=== PATIENT | male | born 1955 | race Caucasian/White ===

== ENCOUNTER 2016-08-23 10:43 | Emergency (ER) | payer OTHER ==
[~2016-08-23] VITALS: Ht 185.4 cm; Wt 86.0 kg
[2016-08-23 10:46] VITALS: TEMP 36.9; Ht 185.4 cm; Wt 86.0 kg
[2016-08-23] MEDS ORDERED: TIMO0.2530 OPR (11:11)
[2016-08-23] MEDS ORDERED: LMGOPS OPR (11:11)
[2016-08-23] MEDS ORDERED: CALC-51 PO (11:11)
[2016-08-23] MEDS ORDERED: MULT-506 PO (11:11)
[2016-08-23 11:13] VITALS: O2SAT 99
[2016-08-23] MEDS ORDERED: LISINOPRIL 5 MG TAB PO ONE (12:00)
--- NOTE | 2016-08-23 12:04 | EMERGENCY ROOM VISIT NOTE ---
History Report prepared by Nellibjenifer: Betzy Quintanilla Under the Supervision of: Dr. Mela Beyer M.D. First contact with patient: 11:42 Chief Complaint: CARDIAC ASSESSMENT Stated Complaint: CHEST PRESSURE, HIGH BP Nursing Triage Summary: pt states last month not feeling right bp was high this am. feels tight in chest for approx 1 month. denies any n/v. has gas able to belch any time. has irregular hb with pvcs. denies nay sob History of Present Illness The patient is a 61 year old male who presents to the Emergency Room with complaints of hypertension this morning. The patient states that his blood pressure is typically in the 130s/80s although he does have occasional fluctuations in his blood pressure. He is not treated for hypertension. This morning, his blood pressure was significantly elevated. He notes that he has had some chest tightness over the past month. It does not worsen with exertion. Currently, the patient also complains of belching. He notes that his belching seems to happen when is chest tightness is worse and his blood pressure is elevated. The patient called a nurse line today and was referred to the ER for his symptoms. He had a stress test about a year ago which revealed PVCs. Denies vomiting or other complaints. He did not take any aspirin this morning. Source of History: patient Onset: this morning Position: other (global) Quality: other (hypertension) Associated Symptoms: No vomiting Note: Other symptoms: chest tightness, belching Review of Systems See HPI for pertinent positives & negatives. A total of 10 systems reviewed and were otherwise negative. Past Medical & Surgical Medical Problems: (1) Osteoarthritis (2) Sciatica Family History No pertinent family history stated. Social History Smoking Status: Never Smoker Marital Status: Housing Status: lives with significant other Occupation Status: retired Current/Historical Medications Scheduled Calcium Carbonate-Vitamin D (Calcium), 1 TAB PO DAILY Lisinopril (Prinivil), 10 MG PO DAILY Multivitamin (Multivitamin), 1 TAB PO DAILY Timolol Maleate (Ophth) (Timolol Maleate Ophthalmi), 1 DROP OPR DAILY Miscellaneous Medications Bimatoprost (Lumigan), 1 DROP OPR Allergies Coded Allergies: No Known Allergies (Unverified , 08/23/16) Physical Exam Vital Signs Date Time Temp Pulse Resp B/P Pulse Ox O2 Delivery O2 Flow Rate FiO2 08/23/16 13:32 52 18 158/104 98 Room Air 08/23/16 13:09 48 08/23/16 12:52 49 18 173/110 100 Room Air 08/23/16 12:08 54 20 182/114 99 Room Air 08/23/16 11:13 99 Room Air 08/23/16 11:01 54 08/23/16 10:46 36.9 58 18 201/115 99 Room Air Physical Exam Vital signs reviewed. General: Well-appearing 61 year old male, in no significant distress. HEENT: No scleral icterus, PERRLA, neck supple. Atraumatic. Cardiovascular: Regular rate and rhythm, no extra sounds. Pulmonary: Clear to auscultation bilaterally, normal work of breathing. Abdomen: Soft, nontender, nondistended, positive bowel sounds. Musculoskeletal: Atraumatic, no peripheral edema. Neurologic: Patient awake alert and oriented x 3, full strength in all 4 extremities. Cranial nerves 2 through 12 grossly intact. Skin: Warm, dry, no rash Medical Decision & Procedures ER Provider Diagnostic Interpretation: Radiology results as stated below per my review and radiologist interpretation: SINGLE VIEW CHEST CLINICAL HISTORY: Atypical chest pain. Hypertension. FINDINGS: An AP, portable, upright chest radiograph is obtained. No prior studies are available for comparison at the time of dictation. The examination is degraded by portable technique and patient rotation. The heart is mildly enlarged. The pulmonary vasculature is noncongested. There is minimal bibasilar atelectasis. The lungs and pleural spaces are otherwise clear. No pneumothorax is seen. The bony thorax is grossly intact. IMPRESSION: Cardiac enlargement with no acute cardiopulmonary abnormality. Electronically signed by: Cedrick Calvo M.D. 08/23/2016 12:52 PM Dictated Date/Time: 08/23/2016 12:51 PM Laboratory Results 08/23/16 11:05 Red Blood Count 4.13, Mean Corpuscular Volume 92.0, Mean Corpuscular Hemoglobin 32.7, Mean Corpuscular Hemoglobin Concent 35.5, Mean Platelet Volume 11.0, Neutrophils (%) (Auto) 65.5, Lymphocytes (%) (Auto) 22.9, Monocytes (%) (Auto) 9.8, Eosinophils (%) (Auto) 1.0, Basophils (%) (Auto) 0.6, Neutrophils # (Auto) 3.35, Lymphocytes # (Auto) 1.17, Monocytes # (Auto) 0.50, Eosinophils # (Auto) 0.05, Basophils # (Auto) 0.03 08/23/16 11:05 Test 08/23/16 11:00 08/23/16 11:05 08/23/16 11:12 Urine Color YELLOW Urine Appearance CLEAR (CLEAR) Urine pH 6.5 (4.5-7.5) Urine Specific [place] 1.001 (1.000-1.030) Urine Protein NEG (NEG) Urine Glucose (UA) NEG (NEG) Urine Ketones NEG (NEG) Urine Occult Blood NEG (NEG) Urine Nitrite NEG (NEG) Urine Bilirubin NEG (NEG) Urine Urobilinogen NEG (NEG) Urine Leukocyte Esterase NEG (NEG) White Blood Count 5.11 K/uL (4.8-10.8) Red Blood Count 4.13 M/uL (4.7-6.1) Hemoglobin 13.5 g/dL (14.0-18.0) Hematocrit 38.0 % (42-52) Mean Corpuscular Volume 92.0 fL (80-100) Mean Corpuscular Hemoglobin 32.7 pg (25-34) Mean Corpuscular Hemoglobin Concent 35.5 g/dl (32-36) Platelet Count 251 K/uL (130-400) Mean Platelet Volume 11.0 fL (7.4-10.4) Neutrophils (%) (Auto) 65.5 % Lymphocytes (%) (Auto) 22.9 % Monocytes (%) (Auto) 9.8 % Eosinophils (%) (Auto) 1.0 % Basophils (%) (Auto) 0.6 % Neutrophils # (Auto) 3.35 K/uL (1.4-6.5) Lymphocytes # (Auto) 1.17 K/uL (1.2-3.4) Monocytes # (Auto) 0.50 K/uL (0.11-0.59) Eosinophils # (Auto) 0.05 K/uL (0-0.5) Basophils # (Auto) 0.03 K/uL (0-0.2) RDW Standard Deviation 41.7 fL (36.4-46.3) RDW Coefficient of Variation 12.4 % (11.5-14.5) Immature Granulocyte % (Auto) 0.2 % Immature Granulocyte # (Auto) 0.01 K/uL (0.00-0.02) D-Dimer 190 ug/L FEU (0-500) Anion Gap 6.0 mmol/L (3-11) Est Creatinine Clear Calc Drug Dose 77.7 ml/min Estimated GFR () 82.4 Estimated GFR (Non- 71.1 BUN/Creatinine Ratio 11.1 (10-20) Calcium Level 9.0 mg/dl (8.5-10.1) Magnesium Level 2.0 mg/dl (1.8-2.4) Total Bilirubin 0.8 mg/dl (0.2-1) Direct Bilirubin 0.2 mg/dl (0-0.2) Aspartate Amino Transf (AST/SGOT) 18 U/L (15-37) Alanine Aminotransferase (ALT/SGPT) 13 U/L (12-78) Alkaline Phosphatase 89 U/L (45-117) Total Creatine Kinase 108 U/L (39-308) Creatine Kinase MB 1.6 ng/ml (0.5-3.6) Creatine Kinase MB Ratio 1.5 (0-3.0) Troponin I < 0.015 ng/ml (0-0.045) Total Protein 7.3 gm/dl (6.4-8.2) Albumin 4.0 gm/dl (3.4-5.0) Lipase 163 U/L (73-393) Bedside Troponin I 0.000 ng/ml (0-0.045) Laboratory results per my review. Medications Administered Medications (Trade) Dose Ordered Sig/Harsh Route Start Time Stop Time Status Last Admin Dose Admin Lisinopril (Zestril Tab) 10 mg NOW ONCE PO 08/23/16 12:00 08/23/16 12:01 DC 08/23/16 12:08 10 MG Aspirin (Aspirin Chew) 324 mg NOW STAT PO 08/23/16 12:10 08/23/16 12:13 DC 08/23/16 12:19 324 MG ECG Indication: other (chest tightness/HTN) Rate (beats per minute): 53 Rhythm: sinus bradycardia Findings: RBBB, no acute ischemic change, no ectopy ED Course 1154: The patient was evaluated in room C6. A complete history and physical examination was performed. 1200: Ordered Lisinopril 10 mg PO. 1210: Ordered Aspirin 324 mg PO. 1350: Upon reevaluation, the patient was resting comfortably. I discussed findings with him. He verbalized agreement of the treatment plan. The patient was discharged home. Medical Decision Differential diagnosis: Acute coronary syndrome, pulmonary embolus, aortic dissection, musculoskeletal pain, pneumonia, pleural effusion, pneumothorax, hypertensive urgency. This patient was evaluated and appeared to be in no significant distress. Physical examination is fairly unrevealing with the exception of notable hypertension. It seems that the patient has had fluctuating blood pressures recently. He does check his blood pressure frequently at home. He has had elevated pressures recently per his review. Patient was given 10 mg of oral lisinopril. His laboratory work is fairly unrevealing. EKG reveals no evidence of acute ischemia on chest x-ray is negative. Patient does not seem to be particularly symptomatic from the hypertension. He is scheduled to see Dr. Johnson as a new primary care provider in January. Case management contacted the office and they will see him in several days for blood pressure recheck and further management. The patient was given a prescription for lisinopril 10 mg daily for the next 2 weeks. He will return to the ER for worsening of symptoms or any medical concerns. Impression Primary Impression: Hypertension Scribe Attestation The scribe's documentation has been prepared under my direction and personally reviewed by me in its entirety. I confirm that the note above accurately reflects all work, treatment, procedures, and medical decision making performed by me. Departure Information Dispostion Home / Self-Care Prescriptions Lisinopril (Prinivil) 10 Mg Tab 10 MG PO DAILY, #14 TAB Prov: Mela Beyer M.D. 08/23/16 Referrals Yadiel Johnson D.O.Int.Med. (PCP) Patient Instructions My [facility] Additional Instructions Diagnosis: Hypertension Lisinopril 10 mg daily. Follow-up with Dr. Johnson as scheduled by case management for blood pressure recheck within the next 1-2 weeks. Maintain a low-sodium diet, less than 2 g daily. Return to the emergency department for worsening of symptoms or any medical concerns. Problem Qualifiers Primary Impression: Hypertension Hypertension type: essential hypertension Qualified Codes: I10 - Essential ( primary) hypertension
[2016-08-23 12:07] LABS: BASO % 0.6 %; BASO ABS # 0.03 K/uL (0-0.2); COMPLETE YES; IG% 0.2 %; LYMPH % 22.9 %; LYMPH ABS # 1.17 K/uL (1.2-3.4); MEAN CORPUSCULAR HEMOGLOBIN 32.7 pg (25-34); MEAN CORPUSCULAR HGB CONC 35.5 g/dl (32-36); MONO % 9.8 %; NEUT % 65.5 %; PLATELET COUNT 251 K/uL (130-400); RED BLOOD COUNT 4.13 M/uL (4.7-6.1); WHITE BLOOD COUNT 5.11 K/uL (4.8-10.8)
[2016-08-23] MEDS ORDERED: ASPIRIN 324 MG CHEW PO STA (12:10)
[2016-08-23 12:13] LABS: URINE APPEARANCE CLEAR (CLEAR); URINE BILIRUBIN NEG (NEG); URINE COLOR YELLOW; URINE NITRITE NEG (NEG); URINE PH 6.5 (4.5-7.5); URINE SPECIFIC GRAVITY 1.001 (1.000-1.030); UROBILINOGEN NEG (NEG); ZZUR CULT IF INDIC CLEAN CATCH NO
[2016-08-23 12:14] LABS: BUN/CREATININE RATIO 11.1 (10-20); CREATININE 1.1 mg/dl (0.60-1.40); POTASSIUM 4.1 mmol/L (3.5-5.1)
[2016-08-23 12:17] LABS: CKMB/CK RATIO 1.5 (0-3.0)
[2016-08-23 12:27] LABS: MANUAL MICROSCOPIC REQUIRED? NO; REVIEW REQ? NO
--- NOTE | 2016-08-23 12:53 | DIAGNOSTIC IMAGING REPORT ---
SINGLE VIEW CHEST CLINICAL HISTORY: Atypical chest pain. Hypertension. FINDINGS: An AP, portable, upright chest radiograph is obtained. No prior studies are available for comparison at the time of dictation. The examination is degraded by portable technique and patient rotation. The heart is mildly enlarged. The pulmonary vasculature is noncongested. There is minimal bibasilar atelectasis. The lungs and pleural spaces are otherwise clear. No pneumothorax is seen. The bony thorax is grossly intact. IMPRESSION: Cardiac enlargement with no acute cardiopulmonary abnormality. Electronically signed by: Cedrick Calvo M.D. 08/23/2016 12:52 PM Dictated Date/Time: 08/23/2016 12:51 PM
[2016-08-23 13:32] VITALS: BP 158/104; PULSE 52; O2SAT 98
[2016-08-23] MEDS ORDERED: LISI10TA PO (13:47)
== END 2016-08-23 13:59 | disposition home or self-care (01) ==
LOC: C.EDB 10:45 → C.EDC 13:59
DX: I10 Essential (primary) hypertension (principal); M19.90 Unspecified osteoarthritis, unspecified site; M54.30 Sciatica, unspecified side; Z79.899 Other long term (current) drug therapy

== ENCOUNTER → 2016-09-08 | Outpatient (CLI) | payer OTHER ==
[~2016-09-08] MED LIST: CALC-51 PO; LISI10TA PO; LMGOPS OPR; MULT-506 PO; TIMO0.2530 OPR
[2016-09-08 17:03] LABS: BASO % 0.7 %; BASO ABS # 0.04 K/uL (0-0.2); COMPLETE YES; EOS % 1.2 %; IG% 0.2 %; LYMPH % 24.5 %; LYMPH ABS # 1.49 K/uL (1.2-3.4); MEAN CELL VOLUME 91.8 fL (80-100); MEAN CORPUSCULAR HEMOGLOBIN 32.4 pg (25-34); MEAN CORPUSCULAR HGB CONC 35.3 g/dl (32-36); MEAN PLATELET VOLUME 11.7 fL (7.4-10.4); MONO % 9.2 %; NEUT % 64.2 %; PLATELET COUNT 223 K/uL (130-400); RED BLOOD COUNT 4.14 M/uL (4.7-6.1); WHITE BLOOD COUNT 6.07 K/uL (4.8-10.8)
[2016-09-08 17:15] LABS: ALB/GLOB RATIO 1.2 (0.9-2); ALT/SGPT 14 U/L (12-78); AST/SGOT 16 U/L (15-37); BLOOD UREA NITROGEN 14 mg/dl (7-18); BUN/CREATININE RATIO 12.8 (10-20); CALCIUM 8.7 mg/dl (8.5-10.1); CARBON DIOXIDE 33 mmol/L (21-32); CHLORIDE 106 mmol/L (98-107); GLUCOSE 100 mg/dl (70-99); POTASSIUM 4.3 mmol/L (3.5-5.1); SODIUM 143 mmol/L (136-145)
[2016-09-08 17:17] LABS: ALKALINE PHOSPHATASE 81 U/L (45-117); FERRITIN 23.8 ng/ml (8.0-388.0); TOTAL IRON BINDING CAPACITY 304 mcg/dl (250-450)
== END | disposition home or self-care (01) ==
LOC: C.LABBC 14:44
PROVIDERS: ATTEND Family Medicine
DX: I10 Essential (primary) hypertension (principal); D64.9 Anemia, unspecified; E83.119 Hemochromatosis, unspecified; Z11.59 Encounter for screening for other viral diseases

== ENCOUNTER → 2016-09-22 | Outpatient (CLI) | payer OTHER ==
--- NOTE | 2016-09-22 13:57 | DIAGNOSTIC IMAGING REPORT ---
DOPPLER ULTRASOUND OF THE RENAL ARTERIES CLINICAL HISTORY: Labile blood pressure. COMPARISON STUDY: No priors. TECHNIQUE: Doppler sonography of the renal arteries was performed to assess renal artery stenosis. Images are reviewed in the transverse and longitudinal planes. FINDINGS: The kidneys appear normal in size and echotexture. The right kidney measures 10.5 cm in length and the left kidney measures 10.5 cm in length. A 1.1 cm cyst is noted in the interpolar right kidney. There is no hydronephrosis. On the right, intrarenal arterial resistive indices range from 0.55 to 0.56. Intrarenal arterial waveforms are normal with brisk upstrokes. The right renal arterial waveform is normal, and velocities within the right renal artery measure up to 96 cm/sec. The right renal vein is patent. On the left, intrarenal arterial resistive indices range from 0.57 to 0.64. Intrarenal arterial waveforms are normal with brisk upstrokes. The left renal arterial waveform is normal, and velocities within the left renal artery measure up to 61 cm/sec. The left renal vein is patent. The abdominal aorta is patent. Velocities within the abdominal aorta measure up to 66 cm/s. IMPRESSION: There is no sonographic evidence of renal artery stenosis. Electronically signed by: Cedrick Calvo M.D. 09/22/2016 1:55 PM Dictated Date/Time: 09/22/2016 1:54 PM
== END | disposition home or self-care (01) ==
LOC: C.ULTRBC 13:12
PROVIDERS: ATTEND Physician Assistant Medical
DX: I99.8 Other disorder of circulatory system (principal)

== ENCOUNTER 2019-05-29 05:01 | Inpatient (IN) ==
--- NOTE | 2019-04-30 12:26 | Anesthesiology Consultation ---
Date of Service April 30, 2019 Assessment & Plan (1) Encounter for pre-operative examination: Chart Review Chart Review: Pending: Refer to Additional Notes / Consult section and Patient NOT seen in Pre Admission Testing Awaiting labs and ECG. Consults Requested none Cardiology note Dr. Osullivan 04/19/2019. Loop recorder interrogation performed in January demonstrates episodes of asymptomatic sinus bradycardia. No recurrent SVT/PAT. Evaluated by EP at [facility] (vagus nerve testing performed revealing evidence of vasovagal syncope) as well as [facility] in the past. Consideration for pacemaker discussed for alleviation of symptoms, however, conservative treatment and observation ultimately recommended. Patient exercising regularly. Denies chest pain or unusual shortness of breath. Patient's function capacity is stable without exertional angina. No indication for stress testing prior to orthopedic surgery. Due to chronic resting bradycardia, history of vasovagal syncope and junctional bradycardia, recommend performing surgery in hospital setting. Continue current cardiovascular medications as listed above which were reviewed and updated today. History Surgery Operation Date: 05/29/19 10:40 Proposed Procedures p Right Total Hip Replacement - Kevin Barbosa MD Height/Weight Height: 6 ft 1 in Weight: 80.739 kg Allergies Allergy/AdvReac Type Severity Reaction Status Date / Time No Known Allergies Allergy Unverified 04/30/19 08:27 Medications Home Medications Medication Instructions Recorded Confirmed Last Taken allopurinol 300 mg PO QAM 04/30/19 04/30/19 04/30/19 amlodipine 2.5 mg PO QAM 04/30/19 04/30/19 04/30/19 latanoprostene bunod [Vyzulta] 1 drp OPHTHALMIC (EYE) PM 04/30/19 04/30/19 Unknown magnesium 250 mg PO DAILY 04/30/19 04/30/19 Unknown multivitamin 1 cap PO DAILY 04/30/19 04/30/19 Unknown omega [id number] oil [Fish Oil] 1 cap PO DAILY 04/30/19 04/30/19 Unknown timolol 1 drp OPHTHALMIC (EYE) DAILY 04/30/19 04/30/19 Unknown Past Medical History Medical History Glaucoma (Acute) Gout (Acute) HX OF Borderline high blood pressure Elbow problem L Frequent urination at night History of cardiac monitoring CURRENT - LINQ MONITOR IN PLACE Osteoarthritis Right bundle branch block HX OF/RESTING HEART RATE IN 40'S Trouble swallowing ONLY WITH CERTAIN TYPES OF PILLS Vasovagal syncope Happened a year ago. No LOC per patient report. Only occurred after heavy exercise. Had LINQ implanted 04/04/[address] Green. At that time discussion regarding possible pacemaker but patient went to [facility] for a second opinion and was told pacer not indicated at this time. Exercise / Class Metabolic Activity II 4-5 Yardwork/Stairs/Walk up hill Past Family History Family History Grandfather (Maternal) Family history of diabetes mellitus Past Surgical History Surgical History History of arthroscopy of right knee History of colonoscopy History of eye surgery TEENAGER BILAT (X1 PROCEDURE) GLAUCOMA SURGERY L EYE (X2) History of hemorrhoidectomy History of left cataract surgery History of right cataract surgery HYDRUS STENT Past Anesthesia History No Hx of Anesthesia Complications and No Family Hx of Anesthesia Complications History of PONV No Hx of PONV and No Hx of Motion Sickness Social History Smoking Status: Never smoker Do You Dip or Chew Tobacco: No Hx Alcohol Use: Yes Alcohol type: beer and wine alcohol intake frequency: holidays/special occasions only Alcohol Intake Frequency Comment: 3-4 A WEEK Hx Substance Use: No substance use type: does not use Physical Exam Vital Signs Last Vital Signs Temp 36.6 C 04/30/19 12:25 Pulse 50 L 04/30/19 12:25 Resp 16 04/30/19 12:25 BP 138/85 04/30/19 12:25 Pulse Ox 100 04/30/19 12:25 ENMT Mouth: no TMJ abnormality and no TMJ clicking Thyromental Distance: > or= 3.5 Finger Breadths Mallampati Class: II Neck normal visual inspection Respiratory normal respiratory effort Auscultation: lungs clear to auscultation bilaterally Cardiovascular Rate/Rhythm: regular rate and regular rhythm Neurologic moves all extremities Psychiatric Orientation: alert and oriented x 3 Testing Electrocardiogram Date: 04/19/19 Findings: + SB @ (46) Sinus dylon. RBBB. Echocardiogram Date: 04/27/18 LV wall mildly thickened. LV motiona normal EF 60-64%. No valvular disease.
--- NOTE | 2019-04-30 13:20 | XRay Report ---
XR chest Pre-admission PA/Lat HISTORY: 64 years-old Male pat preoperative exam. No acute chest complaints COMPARISON: Chest radiograph 08/23/2016 TECHNIQUE: PA and lateral views of the chest FINDINGS: Cardiac mediastinal and hilar silhouettes are unchanged. Loop recorder device noted. No pneumothorax, pleural effusion, focal airspace consolidation or overt pulmonary edema. Degenerative changes of the shoulders and spine. IMPRESSION: No acute process. The above report was generated using voice recognition software. It may contain grammatical, syntax o r spelling errors. Electronically signed by: Yosvany Sweet M.D. 04/30/2019 1:19 PM
[2019-04-30 13:39] LABS: Basophils # (auto) 0.03 K/uL (0-0.2); Basophils % (auto) 0.6 %; Eosinophils # (auto) 0.12 K/uL (0-0.5); Eosinophils % (auto) 2.3 %; Hematocrit (blood only) 37.7 % (42-52); Immature Granulocytes # (auto) 0.01 K/uL (0.00-0.02); Immature Granulocytes % (auto) 0.2 %; Lymphocytes # (auto) 1.41 K/uL (1.2-3.4); Lymphocytes % (auto) 27.5 %; Mean Corpuscular Hemoglobin 32.7 pg (25-34); Mean Corpuscular Hgb Conc 34.5 g/dL (32-36); Mean Platelet Volume 11.2 fL (7.4-10.4); Monocytes # (auto) 0.52 K/uL (0.11-0.59); Monocytes % (auto) 10.2 %; Neutrophils # (auto) 3.03 K/uL (1.4-6.5); Neutrophils % (auto) 59.2 %; Platelet Count 202 K/uL (130-400); RDW Coefficient of Variation 12.5 % (11.5-14.5); RDW Standard Deviation 43.3 fL (36.4-46.3); Red Blood Count 3.97 M/uL (4.7-6.1); White Blood Count 5.12 K/uL (4.8-10.8)
[2019-04-30 13:55] LABS: Partial Thromboplastin Time 26.1 Seconds (21.0-31.0); Prothrombin Time 10.7 Seconds (9.0-12.0)
[2019-04-30 14:00] LABS: BUN Creatinine Ratio 20.6 (10-20); Calcium 9.2 mg/dl (8.5-10.1); Creatinine Clr Calc Pharmacy 84.7 ml/min; Est GFR (African American) 93.9; Potassium 4.2 mmol/L (3.5-5.1)
--- NOTE | 2019-05-23 22:45 | History and Physical Report ---
DATE OF ADMISSION: 05/29/2019 CHIEF COMPLAINT: Persistent progressive left hip pain and discomfort. HISTORY OF PRESENT ILLNESS: A 64-year-old gentleman who presents for treatment of his left hip. He has got a long history of left hip pain and discomfort which has gradually gotten worse over the years. He describes groin pain and thigh pain. The more he walks, the more it hurts. He limps more as the day goes on. He has been on various medicines which do not seem to help anymore at all. He has difficulty putting his shoes and socks on. He has a limited walking tolerance of a couple blocks. He would like to have his left hip fixed. PAST MEDICAL HISTORY: 1. Hypertension. 2. History of irregular heartbeat followed by [facility]. 3. Sleep apnea. 4. Arthritis. PAST SURGICAL HISTORY: Previous surgeries include: 1. Strabismus surgery as a child. 2. Cataracts. 3. Trabeculectomy. 4. Hemorrhoid surgery. ALLERGIES: None. CURRENT MEDICINES: Include: 1. Amlodipine 2.5 mg a day. 2. Allopurinol 300 mg a day. 3. Timolol eyedrops. 4. Vitamins. 5. Magnesium. 6. Fish oil. 7. Arthro-7. SOCIAL HISTORY: A 64-year-old male. He is . He lives in [place]. Does not smoke. A 3-5 drinks per week. FAMILY HISTORY: Noncontributory. REVIEW OF HISTORY: Negative for diabetes, neurologic problems, vascular problems or bleeding disorders. Denies any chest pain or shortness of breath. No history of DVT or PE. No known bleeding problems. PHYSICAL EXAMINATION: EXTREMITIES: Examination of the left hip reveals the patient walks with slight bit of a limp. Leg lengths appear pretty equal. He does have stiffness with hip motion. He can internally rotate to neutral, which causes pain. External rotation to 30 degrees. Negative straight leg raise. No knee effusion. X-RAYS: X-rays of the left hip were reviewed. Shows advanced left hip DJD. He has got complete loss of the superior joint space. He has extensive osteophytes around the acetabulum, particularly inferiorly. He has subchondral sclerosis. ASSESSMENT: A 64-year-old male with advanced left hip degenerative joint disease. He has failed conservative treatment and would like to have his left hip replaced. PLAN: We will take him to the operating room and do left total hip replacement. The risks and benefits of this procedure were explained to the patient including but not limited to DVT, PE, , infection, neurological injury, vascular injury, bleeding problem, pain, limited range of motion, persistent pain, incomplete relief of symptoms, etc. The patient understands and desires to proceed. Informed consent was obtained. The patient does have an apparent tendency to have an increased iron, and donates blood regularly to try and decrease his iron stores. We will hold off any postoperative iron supplementation. We will follow his H and H in the hospital closely. As far as discharge plans, he is being discharged home using [facility] home health program.
[2019-05-29] MEDS ORDERED: TRANEXAMIC ACID 1,000 MG **IV Pre-op IV SCH (06:00)
[2019-05-29] MEDS ORDERED: FAMOTIDINE 20 MG TAB PO SCH (06:00)
[2019-05-29] MEDS ORDERED: METOCLOPRAMIDE HCL 10 MG TABLET PO SCH (06:00)
[2019-05-29] MEDS ORDERED: ACETAMINOPHEN 500 MG TAB PO SCH (06:00)
[2019-05-29] MEDS ORDERED: GABAPENTIN 300 MG CAP PO SCH (06:00)
[2019-05-29] MEDS ORDERED: CEFAZOLIN 2000MG 2,000 MG/15 ML SYR IV SCH (06:00)
[2019-05-29] MEDS ORDERED: LR 60ML/HR IV SCH (06:00)
[2019-05-29] MEDS ORDERED: LR 500ML BOLUS, THEN 15ML/HR IV SCH (06:00)
[2019-05-29] MEDS ORDERED: BUPIVACAINE 0.5 % 5 MG/1 ML PF 10ML VIAL ONE (06:27)
[2019-05-29] MEDS ORDERED: MIDAZOLAM HCL 1 MG/ML 2ML VIAL ONE (06:28)
[2019-05-29] MEDS ORDERED: fentaNYL citrate 100 MCG/2 ML VIAL ONE (06:28)
[2019-05-29] MEDS ORDERED: PROPOFOL IV EMULSION 10 MG/ML 20 ML VIAL IV ONE ×2 (06:28→08:11)
[2019-05-29] MEDS ORDERED: ONDANSETRON INJ 2 MG/ML 2 ML VIAL ONE (06:35)
[2019-05-29] MEDS ORDERED: MoRPHine SULFATE PF 1 MG/ML 10 ML AMP/VIAL ONE (06:35)
[2019-05-29] MEDS ORDERED: LIDOCAINE HCL 2% 2 ML VIAL/AMP(20MG/ML) INFIL ONE (06:36)
[2019-05-29] MEDS ORDERED: DEXAMETHASONE SOD INJ 4 MG/ML VIAL ONE (06:36)
[2019-05-29] MEDS ORDERED: EPINEPHrine INJ 1 MG/ML AMP ONE (06:40)
[2019-05-29] MEDS ORDERED: BACITRACIN INJ 50,000 UNIT VIAL ONE (06:41)
[2019-05-29] MEDS ORDERED: BUPIVACAINE 0.5 % 5 MG/1 ML MPF 30ML VIAL ONE (06:41)
--- NOTE | 2019-05-29 06:53 | History & Physical Bridge Note ---
Date of Service May 29, 2019 History & Physical Bridge Note I have examined the patient, reviewed the History & Physical and in the interval since the performance of the History & Physical I have noted the following changes of clinical significance: no changes noted
[2019-05-29] MEDS ORDERED: GLYCOPYRROLATE 0.2 MG/ML VIAL ONE (07:44)
--- NOTE | 2019-05-29 08:26 | Post Operative Brief Note ---
PG Immediate Post Op with CF Date of Surgery May 29, 2019 Pre & Post Diagnosis Operation Date: 05/29/19 07:00 Pre-Op Diagnosis: Left Hip Degerative Joint Disease Post-Op Diagnosis: Left Hip Degerative Joint Disease I identified the patient and participated in the time-out.: Yes Procedure Operation Date: 05/29/19 07:00 Actual Procedures p Left Total Hip Replacement(Left) - Kevin Barbosa MD Surgeon Kevin Barbosa MD Devulcanizer Head Meagan, PAC Estimated Blood Loss 200 Findings Consistent with Post-Op Diagnosis Fluids 1400 cc Specimens Specimen Description: Permanent Specimen: A) Left Femoral Head Drains Nascimento Catheter Anesthesia Type Spinal MAC Complications none Disposition Accompanied Patient To Recovery: Yes Disposition: Recovery Room
--- NOTE | 2019-05-29 08:37 | Operative Report ---
Post Operative Report Pre & Post Diagnosis Operation Date: 05/29/19 07:00 Pre-Op Diagnosis: Left Hip Degerative Joint Disease Post-Op Diagnosis: Left Hip Degerative Joint Disease I identified the patient and participated in the time-out.: Yes Procedure Operation Date: 05/29/19 07:00 Actual Procedures p Left Total Hip Replacement(Left) - Kevin Barbosa MD Surgeon Kevin Barbosa MD Services Advisor Meagan, PAC Estimated Blood Loss 200 Findings Consistent with Post-Op Diagnosis Operative findings revealed advanced left hip DJD with extensive grade 4 changes of the femoral head and acetabulum. He had a moderate to large right hip joint effusion. Some moderate synovitis. Fairly large inferior osteophytes of the acetabulum. Fluids 1400 cc Specimens Left femoral head sent for pathology. Drains None. Anesthesia Type Spinal MAC Complications none Disposition Accompanied Patient To Recovery: Yes Disposition: Recovery Room Indications Patient is a 64-year-old gentleman with a long history of left hip pain and discomfort is gradually gotten worse over time. They have been through extensive conservative treatment without adequate relief. He classic symptoms of advanced left hip arthritis with a groin pain, thigh pain, and increased pain with ambulation and difficulty putting his shoes and socks on. He like to proceed with total hip arthroplasty. Description of Procedure Operative implants consisted of: 1. Biomet G7 size 58 mm acetabular shell. 2. Highly cross-link polyethylene liner with a 58 mm outer diameter and 36 mm diameter. 3. Bassett hole eliminator. 4. 6.5 cancellus acetabular screws 135 mm in length and 1 to 20 mm length. 5. Saturnino Corail size 11 KLA femoral stem. 6. +5/36 mm ceramic articular ball. Patient is taken to the operating room identified and placed on the operating table supine position with all contact areas were properly padded. IV antibiotic for by anesthesia team. A spinal anesthetic had been implemented holding area. Nascimento catheter was placed in sterile fashion with patient then placed in the right lateral decubitus position. Axillary roll was placed. Stulberg hip positioner was used for positioning. The left hip and leg were then prepped and draped in usual sterile fashion. A posterior lateral approach left hip was then performed to a curvilinear incision centered over the greater trochanter but Sharp passes cut through subcutaneous tissue down to level the IT band gluteal fascia the IT band gluteal fascia incised longitudinally in line with skin incision. The underlying greater bursa was excised. The piriformis and external rotators were tagged and taken off the posterior aspect of the hip joint capsule. Great care was taken throughout the procedure to protect the sciatic nerve at all times. Posterior capsulotomy was then performed leaving a large flap for later repair. Hip was internally rotated and dislocated. Femoral neck osteotomy cut was made with Final Cut about a centimeter above the lesser trochanter. Femoral head was removed and sent for pathology. The femur was retracted anteriorly. Attention drawn the acetabulum. Acetabular labrum was excised with pulmonary fat was excised. Sequential reaming the acetabulum was then performed again with a size 49 progressing up to 57. I did not ream excessively medially as I was concerned about being able to re-create his offset and soft tissue tension issues. 58 mm Biomet G7 acetabular shell was then placed in about 40 degrees lateral opening and 20 degrees of anteversion but was fixed with two 6.5 cancellus acetabular screws. Some inferior osteophytes were removed. Trial liner was placed. Attention down the femur. The proximal femur was entered with a cookie cutter followed by canal finder. I then broached begin the size 8 and up to 11. Got excellent fit and 11 and it seemed to get wedge in the diaphysis distally. I like to stop there. Calcar reamer was used to smooth off the calcar. Then trialed the hip in the +5 articular ball created appropriate soft tissue tension and leg lengths. It was a little lax soft tissue macario but leg lengths seemed appropriate and I did not want to like them anymore. His hip was fully stable in full extension and external rotation flexion to 90 degrees internal rotation over [address] I elected to place these implants. New for all trial implants were removed. A highly cross-link polyethylene liner was then impacted in position. I did place an apex hole eliminator. A [facility] size 11 KLA femoral stem was impacted in position. +5/36 mm articular ball was placed. Hip was located once again found to be stable. Attention turned toward closing. New breath wounds irrigated cups amounts of pulsatile lavage solution. I did inject locally with 60 cc of half percent Marcaine with epinephrine. The posterior capsule and external rotators then repaired through drill holes in the posterior trochanter with #2 Tycron suture B the IT band gluteal fascia then closed in 1 PDS suture running fashion with subcutaneous tissue then closed with 2 layers with a deep layer #1 Vicryl suture and subcutaneous tissues with 2 Dexon suture in a buried interrupted fashion. The skin was then closed with skin brittney. Leg was then cleaned dried and sterile dressing composed of Xeroform, 4 x 4's, sterile ABD pad, and foam tape was applied. Patient then transferred to the recovery in stable condition. Patient tolerated procedure well there were no complications but all the sponge counts are correct at the end the operation. I attest to the content of the Intraoperative Record and any orders documented therein. Any exceptions are noted below.
--- NOTE | 2019-05-29 08:53 | XRay Report ---
XR hip 1V LT w pelvis CLINICAL HISTORY: Degenerative arthritis. Postoperative study COMPARISON: 04/05/2019 DISCUSSION: There are postsurgical changes of a total left hip arthroplasty. The acetabular and femor al components appear well seated. There is no dislocation. There are overlying skin brittney. There is gas present within the soft tissues consistent with recent surgery. IMPRESSION: Total left hip arthroplasty. No evidence of dislocation Electronically signed by: Madhu Hilton M.D. 05/29/2019 8:51 AM
[2019-05-29] MEDS ORDERED: LACTATED RINGER'S 500 ML IV PRN (09:18)
[2019-05-29] MEDS ORDERED: DiphenhydrAMINE HCL 50 MG/ML VIAL IV PRN (09:18)
[2019-05-29] MEDS ORDERED: NALOXONE HCL 1 MG in SODIUM CHLORIDE 0.9% 1000ML 1,000 ML IV PRN (09:18)
[2019-05-29] MEDS ORDERED: ePHEDrine sulfate 50 MG/ML AMP IV PRN ×2 (09:18)
[2019-05-29] MEDS ORDERED: PROMETHAZINE HCL 6.25 MG in SODIUM CHLORIDE 0.9% 50 ML IV PRN (09:18)
[2019-05-29] MEDS ORDERED: NALOXONE HCL 0.08 MG in SYRINGE 1.8 ML IV PRN (09:18)
[2019-05-29] MEDS ORDERED: NALOXONE HCL 0.4 MG/1 ML VIAL/CARP IV PRN ×2 (09:18→09:44)
[2019-05-29] MEDS ORDERED: KETOROLAC 30 MG/ML VIAL IV PRN (09:18)
[2019-05-29] MEDS ORDERED: HYDROmorphone INJ 0.5 MG/0.5 ML SYR IV PRN (09:18)
[2019-05-29] MEDS ORDERED: ATROPINE SULFATE 0.1 MG/ML 10ML SYR IV PRN (09:18)
[2019-05-29] MEDS ORDERED: MoRPHine SULFATE 2 MG/ML CARP IV PRN (09:18)
[2019-05-29] MEDS ORDERED: MEPERIDINE HCL 25 MG/ML CARP IV PRN (09:18)
[2019-05-29] MEDS ORDERED: NALBUPHINE HCL INJ 10 MG/ML AMP IV PRN (09:18)
[2019-05-29] MEDS ORDERED: MoRPHine SULFATE PF 1 MG/ML 10 ML AMP/VIAL INT SPINAL ONE (09:18)
[2019-05-29] MEDS ORDERED: ONDANSETRON INJ 2 MG/ML 2 ML VIAL IV PRN (09:18)
--- NOTE | 2019-05-29 09:24 | Anesthesiology Progress Note ---
Date of Service May 29, 2019 Anesthesia Post Procedure Vital Signs Vital Signs: Temp Pulse Pulse Resp BP Pulse Ox 05/29/19 09:10 51 L 13 134/89 98 05/29/19 08:55 36.4 C L 49 L 14 128/84 99 05/29/19 08:45 48 L 12 136/87 100 05/29/19 08:35 45 L 12 148/89 H 100 05/29/19 08:27 36.3 C L 47 L 23 143/92 H 100 05/29/19 05:33 36.8 C 50 L 16 142/81 H 98 Transfer of Care Handoff Completed per policy Notes Mental Status: alert / awake / arousable Patient Amnestic to Procedure: Yes Nausea / Vomiting: adequately controlled Pain: adequately controlled Airway Patency, RR, SpO2: stable & adequate BP & HR: stable & adequate Hydration State: stable & adequate Neuraxial Anesthesia: was administered and sensory block is resolving Anesthetic Complications: no major complications apparent
[2019-05-29] MEDS ORDERED: SODIUM CHLORIDE 0.9% 1000ML 1,000 ML IV SCH (09:30)
[2019-05-29] MEDS ORDERED: NO NARCOTICS OR SEDATIVES SCH (09:30)
[2019-05-29] MEDS ORDERED: KETOROLAC TROMETHAMINE 15 MG/ML VIAL IV PRN (09:40)
[2019-05-29] MEDS ORDERED: ALUMINUM/MAGNESIUM SUSP 30 ML UDC PO PRN (09:44)
[2019-05-29] MEDS ORDERED: TAMSULOSIN HCL 0.4 MG CAP PO PRN (09:44)
[2019-05-29] MEDS ORDERED: MAGNESIUM HYDROXIDE SUSP 30 ML UDC PO PRN (09:44)
[2019-05-29] MEDS ORDERED: METOCLOPRAMIDE HCL INJ 5 MG/ML 2 ML VIAL IV PRN (09:44)
[2019-05-29] MEDS ORDERED: bisacodyL 10 MG SUPP PR PRN (09:44)
[2019-05-29] MEDS ORDERED: NON-FORMULARY MEDICATION (Multivitamin 1 CAP) PO SCH (09:44)
[2019-05-29] MEDS: SODIUM CHLORIDE 0.9% 1000ML 1,000 ML IV SCH ×2 (10:38→20:45)
[2019-05-29] MEDS: DOCUSATE SODIUM 100 MG CAP PO SCH ×2 (10:39→20:50)
[2019-05-29] MEDS: MAGNESIUM OXIDE 400 MG TAB PO SCH (10:39)
[2019-05-29] MEDS: PSYLLIUM 58.6% POWDER PACKET PO SCH ×2 (10:40→10:51)
[2019-05-29] MEDS: AMLODIPINE BESYLATE 5 MG TAB PO SCH (10:41)
[2019-05-29] MEDS: allopurinoL 300 MG TAB PO SCH (10:41)
[2019-05-29] MEDS: MULTIVITAMIN TAB PO SCH (10:41)
[2019-05-29] MEDS: OMEGA-3 (PURIFIED FISH OIL) 1 GM CAP PO SCH (10:41)
[2019-05-29] MEDS: ASPIRIN 81 MG ECTAB PO SCH ×2 (12:40→20:51)
[2019-05-29] MEDS: ACETAMINOPHEN 500 MG TAB PO SCH ×2 (13:25→22:46)
[2019-05-29] MEDS ORDERED: TRANEXAMIC ACID 1,000 MG in 0.9 % SODIUM CHLORIDE 100 ML IV SCH (14:26)
[2019-05-29] MEDS: CEFAZOLIN 2000MG 2,000 MG/15 ML SYR IV SCH ×2 (14:52→22:47)
[2019-05-29] MEDS: ASCORBIC ACID 500 MG TAB PO SCH (18:00)
--- NOTE | 2019-05-29 19:35 | Progress Note ---
DATE: 05/29/2019 SUBJECTIVE: A 64-year-old gentleman postop from a left total hip replacement. He is doing well. He does not have any pain at all. He is frustrated as he has had trouble lifting and moving his leg. He wants to get up and walk and move more. No chest pain or shortness of breath. Not feeling dizzy or lightheaded. OBJECTIVE: VITAL SIGNS: Temperature 36.5. Vital signs stable. GENERAL: Shows a pleasant, middle-aged male. He is sitting up in bed, looks quite comfortable. He is in no distress. LUNGS: Clear to auscultation. HEART: Regular rate and rhythm. ABDOMEN: Soft, nontender, nondistended. EXTREMITIES: Grossly neurovascularly intact except as follows: Examination of the left lower extremity reveals the dressing to be clean, dry and intact. Leg lengths are equal. He can dorsiflex and plantarflex his foot appropriately. He has got good quad function. He can actually do a straight leg raise. He has just a little trouble adducting his leg. X-RAYS: X-rays of the left hip from recovery room were reviewed. It shows left uncemented total hip arthroplasty. Components looked to be in good position. No signs of problems. ASSESSMENT: A 64-year-old gentleman postoperative from left hip replacement, doing pretty well. Pain is controlled. He has not had any pain. Hip is located. He is neurologically intact. He is having a little trouble lifting his leg, which is normal. He actually lifts it better than most people at this point. PLAN: I have reassured him that everything looks to be on course. We will continue DVT prophylaxis including thigh-high TEDs, SCDs, and aspirin twice a day. He will go through therapy with weightbearing as tolerated. He will need to obey hip precautions. Pain control is good right now. I will add tramadol as needed if he needs stronger pain meds. He is planning to be discharged home with some home health once medically stable and recovered.
[2019-05-29] MEDS ORDERED: NON-FORMULARY PATIENT'S OWN MED OP SCH (21:00)
[2019-05-29] MEDS ORDERED: SENNA 8.6 MG TAB PO SCH (21:00)
[2019-05-30] MEDS: ACETAMINOPHEN 500 MG TAB PO SCH (05:26)
[2019-05-30 06:19] LABS: Basophils # (auto) 0.02 K/uL (0-0.2); Basophils % (auto) 0.2 %; Eosinophils # (auto) 0.03 K/uL (0-0.5); Eosinophils % (auto) 0.3 %; Hematocrit (blood only) 32.2 % (42-52); Hemoglobin 11.5 g/dL (14.0-18.0); Immature Granulocytes # (auto) 0.03 K/uL (0.00-0.02); Immature Granulocytes % (auto) 0.3 %; Lymphocytes % (auto) 13.6 %; Mean Corpuscular Hemoglobin 32.9 pg (25-34); Mean Corpuscular Hgb Conc 35.7 g/dL (32-36); Mean Platelet Volume 10.7 fL (7.4-10.4); Monocytes # (auto) 1.37 K/uL (0.11-0.59); Monocytes % (auto) 14.3 %; Neutrophils % (auto) 71.3 %; Platelet Count 178 K/uL (130-400); RDW Coefficient of Variation 12.1 % (11.5-14.5); RDW Standard Deviation 40.7 fL (36.4-46.3); White Blood Count 9.55 K/uL (4.8-10.8)
[2019-05-30 06:52] LABS: BUN Creatinine Ratio 16.1 (10-20); Calcium 8.3 mg/dl (8.5-10.1); Creatinine Clr Calc Pharmacy 77.5 ml/min; Est GFR (African American) 84.3; Est GFR (Non-African American) 72.8
--- NOTE | 2019-05-30 08:04 | Anesthesiology Progress Note ---
Date of Service May 30, 2019 Anesthesia Post Procedure Vital Signs Vital Signs: Temp Pulse Pulse Pulse Resp BP BP 05/30/19 07:54 37.0 C 60 18 116/68 05/30/19 05:35 16 05/30/19 04:40 16 05/30/19 04:01 16 05/30/19 02:35 36.9 C 61 15 105/64 05/30/19 01:35 16 05/30/19 00:27 15 05/29/19 23:45 36.9 C 62 15 122/78 05/29/19 23:30 15 05/29/19 22:25 14 05/29/19 21:36 16 05/29/19 20:32 16 05/29/19 19:37 16 05/29/19 19:02 36.8 C 62 16 112/66 05/29/19 18:27 15 05/29/19 17:35 15 05/29/19 16:39 15 05/29/19 15:08 36.5 C 60 55 L 16 133/79 05/29/19 14:53 98 H 16 05/29/19 13:21 96 H 16 05/29/19 12:25 36.3 C L 53 L 16 124/79 05/29/19 11:23 36.2 C L 51 L 16 126/78 05/29/19 10:27 50 L 16 148/87 H 05/29/19 10:04 36.4 C L 52 L 17 138/86 05/29/19 09:30 36.5 C 49 L 16 148/85 H 05/29/19 09:10 51 L 13 134/89 05/29/19 08:55 36.4 C L 49 L 14 128/84 05/29/19 08:45 48 L 12 136/87 05/29/19 08:35 45 L 12 148/89 H 05/29/19 08:27 36.3 C L 47 L 23 143/92 H Pulse Ox 05/30/19 07:54 96 05/30/19 05:35 98 05/30/19 04:40 94 05/30/19 04:01 96 05/30/19 02:35 96 05/30/19 01:35 93 05/30/19 00:27 94 05/29/19 23:45 97 12/03/19 23:30 97 05/29/19 22:25 96 05/29/19 21:36 95 05/29/19 20:32 97 05/29/19 19:37 95 05/29/19 19:02 94 05/29/19 18:27 94 05/29/19 17:35 93 05/29/19 16:39 97 05/29/19 15:08 92 05/29/19 14:53 05/29/19 13:21 05/29/19 12:25 95 05/29/19 11:23 98 05/29/19 10:27 97 05/29/19 10:04 97 05/29/19 09:30 99 05/29/19 09:10 98 05/29/19 08:55 99 05/29/19 08:45 100 05/29/19 08:35 100 05/29/19 08:27 100 Pain Intensity Left Hip: Pain Intensity: 2 Back: Pain Intensity: 2 Notes Mental Status: alert / awake / arousable and participated in evaluation Patient Amnestic to Procedure: Yes Nausea / Vomiting: improving with treatment Pain: adequately controlled Airway Patency, RR, SpO2: stable & adequate BP & HR: stable & adequate Hydration State: stable & adequate Neuraxial Anesthesia: was administered and sensory block resolved Anesthetic Complications: no major complications apparent and Pt Satisfied with anesthetic care Notes: One episode of nausea after transfer to floor and post meal. Resolved with Zofran - no emesis.
[2019-05-30] MEDS: MULTIVITAMIN TAB PO SCH (08:26)
[2019-05-30] MEDS: ASPIRIN 81 MG ECTAB PO SCH (08:26)
[2019-05-30] MEDS: DOCUSATE SODIUM 100 MG CAP PO SCH (08:26)
[2019-05-30] MEDS: MAGNESIUM OXIDE 400 MG TAB PO SCH (08:27)
[2019-05-30] MEDS: allopurinoL 300 MG TAB PO SCH (08:27)
[2019-05-30] MEDS: AMLODIPINE BESYLATE 5 MG TAB PO SCH (08:27)
[2019-05-30] MEDS: ASCORBIC ACID 500 MG TAB PO SCH (08:27)
[2019-05-30] MEDS: PSYLLIUM 58.6% POWDER PACKET PO SCH (08:27)
[2019-05-30] MEDS: OMEGA-3 (PURIFIED FISH OIL) 1 GM CAP PO SCH (08:27)
--- NOTE | 2019-05-30 08:50 | Progress Note ---
DATE: 05/30/2019 SUBJECTIVE: A 64-year-old gentleman postop day 1 from a left hip replacement. He is doing well. Still not having any pain. His leg seems to be moving a lot better, needs some more comfortable. He has walked several times around the hallway without much problem. No chest pain or shortness of breath. Not feeling dizzy or lightheaded. OBJECTIVE: VITAL SIGNS: Temperature 37.0. Vital signs stable. GENERAL: Shows a pleasant, middle-aged male. He is sitting up in his bedside chair, looks comfortable. EXTREMITIES: Examination of left hip reveals the dressing to be clean, dry and intact. Leg lengths were equal. Thigh is soft and supple. He is neurologically intact. He can do a pretty good leg lift. LABORATORY DATA: Hemoglobin 11.5, hematocrit 32.2. Electrolytes are stable. ASSESSMENT: A 64-year-old gentleman postop day 1 from a left hip replacement, doing quite well. Pain is controlled. He seems quite a bit more comfortable. He has been getting around pretty well. PLAN: 1. DVT prophylaxis including thigh-high TEDs, SCDs, and aspirin twice a day. 2. PT/OT. Weight bear as tolerated. Left total hip protocol. 3. Pain control, doing well with current pain regimen. 4. Disposition: We are going to discharge him to home with some home health if he does okay in therapy today.
[2019-05-30] MEDS ORDERED: TIMOLOL MALEATE 0.25% OP SOLN 5 ML BTL OPR SCH (09:00)
[2019-05-30] MEDS ORDERED: ONDANSETRON INJ 2 MG/ML 2 ML VIAL IV PRN (09:29)
[2019-05-30] MEDS ORDERED: HYDROmorphone INJ 0.5 MG/0.5 ML SYR IV PRN (09:29)
[2019-05-30] MEDS ORDERED: DC INTRASPINAL MORPHINE ONE (09:29)
[2019-05-30] MEDS ORDERED: TRAMADOL HCL 50 MG TABLET PO PRN (09:29)
[2019-05-30] MEDS: SODIUM CHLORIDE 0.9% 1000ML 1,000 ML IV SCH (09:43)
[2019-05-30] MEDS ORDERED: KETOROLAC TROMETHAMINE 15 MG/ML VIAL IV SCH (10:00)
--- NOTE | 2019-06-05 00:44 | Discharge Summary ---
ADMITTING PHYSICIAN AND SURGEON: Dr. Kevin Barbosa. ADMITTING DIAGNOSIS: Left hip degenerative joint disease. SURGERY PERFORMED: Left total hip arthroplasty. SECONDARY DIAGNOSES: Hypertension, history of an irregular heartbeat, sleep apnea, arthritis. CONSULTS: None obtained. HISTORY AND PHYSICAL EXAMINATION: Well documented in the patient's chart. HOSPITAL COURSE: The patient was admitted on 05/29/2019, underwent total hip arthroplasty, tolerated the procedure well. There were no complications. He was transferred to the PACU postoperatively and later to the orthopedic floor for further care. He was given Ancef for antibiotic prophylaxis, AMANDA stockings, SCDs and aspirin for DVT prophylaxis. Hemoglobin, hematocrit and vital signs were monitored during his hospital stay and remained stable, did not require any blood transfusions. There were no complications. By postoperative day 1, he was tolerating a regular diet, pain was controlled with oral pain medicine. He was participating in physical therapy. On postop day 1, he was discharged home, set up with home health services. He was given printed discharge instructions as well as new prescriptions for extra strength Tylenol, aspirin and tramadol. Continue home medications, continue physical therapy, weightbearing as tolerated, AMANDA stockings, total hip precautions. Follow up approximately 2 weeks postop or sooner if there are any problems or concerns.
== END 2019-05-30 12:16 | disposition home health service (06) | DRG 470 ==
LOC: ASU 05:01 → 3E 08:29

== ENCOUNTER 2022-12-05 12:05 | Observation (INO) ==
--- NOTE | 2022-12-05 12:49 | Emergency Department Note ---
Impression & Plan Right sided weakness Admit to the [facility] ED Provider Note NAME: AMERICA BUENO AGE: 67 SEX: M ARRIVES VIA: Walk-In INFORMANT: Patient and his ED PROVIDER(S): Kat Clifford DO CHIEF COMPLAINT: Extremity weakness PLAN: Disposition: Admit to the [facility] Condition: Good MEDICAL DECISION MAKING: This is a 67-year-old male patient who presents to the emergency department after having an episode of right arm and right leg weakness yesterday. Symptoms lasted approximately 1 hour then completely resolved. However, they were followed immediately by an ocular migraine. These types of migraines are not unusual for the patient but are typically never associated with such dramatic neurological symptoms. CT/CTA of the brain and neck are negative. The patient had a negative Lyme test. There is no leukocytosis and coagulation studies are normal. H&H is normal. BUN is slightly elevated at 31. Chemistry profile is normal. Troponin is negative. I discussed the case with the [facility] and they will evaluate for further management. Triage Nursing notes reviewed and agree with them. Additional history obtained from the patient's is at the bedside Vital Signs: reviewed and remarkable for hypertension and bradycardia Differential diagnosis: Acute CVA, TIA, atypical migraine Diagnostics interpreted by me: ECG: Sinus bradycardia at a rate of 53 with a right bundle branch block. This was continued. To an EKG from 2017 was unchanged. Cardiac Monitoring: Sinus bradycardia at 52 Laboratory studies: See below Imaging studies: As per radiology CT scan of the brain: See report CTA of the head: See report CTA of the neck: See report HPI: 67/M arrives for evaluation of extremity weakness. Patient describes an episode that occurred around 3:00 yesterday afternoon where his right arm went weak as he was trying to hold up a tablet. He then realized it was weak and uncoordinated. He then noticed that his right leg was also weak. He could stand up on it, however it was definitely weak. He took an aspirin and the symptoms seem to resolve after approximately 1 hour. He did then develop his atypical visual migraine. They decided not to seek care at that time. He then took another aspirin before bed. PAST MEDICAL HISTORY:See Below PAST SURGICAL HISTORY:See Below FAMILY HISTORY:See Below SOCIAL HISTORY:See Below HOME MEDICATIONS:See list ALLERGIES:None VITALS:See Below PHYSICAL EXAMINATION: HEENT: Head - normocephalic and atraumatic. Pupils are equal, round, and reactive to light. Extraocular eye muscles are intact and sclera are anicteric. Ears - bilaterally patent canals with noninjected tympanic membranes and no evidence of hemotympanum. Nose - moist nasal mucosa without discharge. Mouth - moist buccal mucosa. Oropharynx is nonerythematous and there is no tonsillar exudate or edema noted. Neck: Supple; no JVD, nuchal rigidity, cervical lymphadenopathy, or auscultated bruits. Heart: Bradycardic rate and regular rhythm rhythm. There is a normal S1 and S2 with no murmurs, clicks, or gallops appreciated. Lungs: Clear to auscultation bilaterally with no wheezes, rales, or rhonchi. Abdomen: Soft, completely nontender, nondistended, with good bowel sounds. There are no palpable pulsatile masses or hepatosplenomegaly. There is no guarding, rigidity, or rebound noted. Extremities: No evidence of cyanosis, clubbing, or edema. There are easily palpable peripheral pulses. Neuro:The patient is awake and alert, oriented to day, time, and place. Muscle strength is 5/5 in all 4 extremities. The patient has equal regulated program manager strength and equal pedal push and pull. There are no cerebellar signs. Cranial nerves II through XII are grossly intact. The patient's left eye appears to be drooped but the assures me this is his normal as a result of the history of glaucoma. ED COURSE: Times/Reassessments: 1215: Patient was evaluated in room C-11. A complete history and physical was performed. An order was placed for continuous cardiac monitoring. The patient was in a sinus bradycardia at a rate of 52. A twelve-lead EKG was obtained as described above. Laboratory studies were drawn as above. The patient went for CT scan of the head and CTA of the head and neck. I followed up with the patient and reviewed the radiographic results with him. I discussed the case with the hospitalist Kat Clifford DO Past Med/Surg History Medical History (Updated 12/06/22 @ 14:04 by Kat Clifford DO) Borderline high blood pressure Elbow problem L Frequent urination at night Glaucoma Gout HX OF History of cardiac monitoring CURRENT - LINQ MONITOR IN PLACE Lumbar spondylosis Osteoarthritis Right bundle branch block HX OF/RESTING HEART RATE IN 40'S Right hip pain Right knee DJD Trouble swallowing ONLY WITH CERTAIN TYPES OF PILLS Vasovagal syncope Happened a year ago. No LOC per patient report. Only occurred after heavy exercise. Had LINQ implanted 04/04/[address] Green. At that time discussion regarding possible pacemaker but patient went to [facility] for a second opinion and was told pacer not indicated at this time. Surgical History History of arthroscopy of right knee History of colonoscopy History of eye surgery TEENAGER BILAT (X1 PROCEDURE) GLAUCOMA SURGERY L EYE (X2) History of hemorrhoidectomy History of left cataract surgery History of right cataract surgery HYDRUS STENT Family History Grandfather (Maternal) Family history of diabetes mellitus Social History Smoking Status: Never smoker Do You Dip or Chew Tobacco: No; Hx Alcohol Use: No Hx Substance Use: No Preferred Language: Sinhala Communication Ability: Effective [employer] Services Required: No Beliefs That Will Affect Care: None marital status: Current Living Situation: Spouse Feels Safe at Home: Yes Assistive Devices: Glasses Allergies Allergies Allergy/AdvReac Type Severity Reaction Status Date / Time No Known Allergies Allergy Verified 02/02/22 10:24 Home Meds Home Medications Medication Instructions Recorded Confirmed allopurinol 300 mg tablet 150 mg PO QAM 04/30/19 12/05/22 amlodipine 2.5 mg tablet 2.5 mg PO QAM 04/30/19 12/05/22 multivitamin 1 cap PO DAILY 04/30/19 12/05/22 omega 2-lqr-mur-fish oil 1,000 mg 1 cap PO DAILY 04/30/19 12/05/22 (120 mg-180 mg) capsule (Fish Oil) ibuprofen 200 mg capsule 200 mg PO Q6H PRN Pain 05/29/19 12/05/22 methylcellulose (with sugar) oral 1 tbsp PO DAILY 05/29/19 12/05/22 powder (Citrucel (sucrose) oral powder) latanoprost 0.005 % eye drops 1 drp ophthalmic (eye) DAILY 12/05/22 12/05/22 magnesium 100 mg tablet 100 mg PO DAILY 12/05/22 12/05/22 Results & Data (ED) Vital Signs Vital Signs - 24 hr 12/05/22 14:00 12/05/22 14:00 12/05/22 14:30 Pulse Rate 49 L Pulse Rate from SpO2 Sensor 49 L Respiratory Rate 13 Blood Pressure 147/93 H 154/96 H Blood Pressure Mean 111 120 Pulse Oximetry 96 12/05/22 14:30 12/05/22 15:00 12/05/22 15:02 Pulse Rate 49 L Pulse Rate from SpO2 Sensor 49 L 49 L Respiratory Rate 12 Blood Pressure Blood Pressure Mean 190 Pulse Oximetry 95 98 12/05/22 15:02 Pulse Rate Pulse Rate from SpO2 Sensor 50 L Respiratory Rate Blood Pressure Blood Pressure Mean Pulse Oximetry 97 Laboratory Data 12/05/22 12:30 12/05/22 12:30 Lab Results 12/05/22 12/05/22 12/05/22 Range/Units 12:30 12:30 12:30 WBC 10.11 (4.8-10.8) K/ul RBC 4.65 L (4.70-6.10) M/uL Hgb 15.1 (14.0-18.0) g/dl Hct 43.1 (42.0-52.0) % MCV 92.7 (80.0-100.0) fL MCH 32.5 (25.0-34.0) pg MCHC 35.0 (32.0-36.0) g/dL RDW Std Deviation 40.2 (36.4-46.3) fL RDW Coeff of Sweta 11.8 (11.5-14.5) % Plt Count 199 (130-400) K/uL MPV 11.3 (9.4-12.4) fL Immature Gran % (Auto) 1.0 % Neut % (Auto) 67.1 % Lymph % (Auto) 19.1 % [place] % (Auto) 10.9 % Eos % (Auto) 1.4 % Baso % (Auto) 0.5 % Neut # (Auto) 6.79 H (1.40-6.50) K/uL Lymph # (Auto) 1.93 (1.2-3.4) K/uL [place] # (Auto) 1.10 H (0.11-0.59) K/uL Eos # (Auto) 0.14 (0-0.50) K/uL Baso # (Auto) 0.05 (0-0.2) K/uL Immature Gran # (Auto) 0.10 (0.01-0.20) K/uL PT 11.0 (9.0-12.0) Seconds INR 1.0 (0.9-1.1) APTT 24.6 (21.0-31.0) Seconds PTT Ratio 0.9 Sodium 139 (136-145) mmol/L Potassium 4.0 (3.5-5.1) mmol/L Chloride 103 (98-107) mmol/L Carbon Dioxide 30 (21-32) mmol/L Anion Gap 6 (3-11) BUN 31 H (6-23) mg/dl Creatinine 0.99 (0.6-1.4) mg/dl Est Cr Clr Drug Dosing 77.3 ml/min Est GFR ( Amer) 89.7 ml/min Est GFR (Non-Af Amer) 77.4 ml/min BUN/Creatinine Ratio 31.3 H (10-20) Glucose 114 H (70-99(Fasting)) mg/dl Calcium 9.0 (8.6-10.3) mg/dl Magnesium 2.1 (1.7-2.4) mg/dl Total Bilirubin 0.7 (0.2-1.0) mg/dl AST 17 (13-39) U/L ALT 10 (7-52) U/L Alkaline Phosphatase 83 (34-104) U/L Troponin I High Sens 6.5 (0-20) pg/ml Total Protein 6.6 (6.0-8.3) gm/dl Albumin 4.1 (3.4-5.0) gm/dl Globulin 2.5 (2.5-4.0) gm/dl Albumin/Globulin Ratio 1.6 (0.9-2) Lyme Disease IgG Ab (Negative) Lyme Disease IgM Ab (Negative) SARS-CoV-2, RNA, NAAT (NEGATIVE) 12/05/22 12/05/22 Range/Units 12:30 12:48 WBC (4.8-10.8) K/ul RBC (4.70-6.10) M/uL Hgb (14.0-18.0) g/dl Hct (42.0-52.0) % MCV (80.0-100.0) fL MCH (25.0-34.0) pg MCHC (32.0-36.0) g/dL RDW Std Deviation (36.4-46.3) fL RDW Coeff of Sweta (11.5-14.5) % Plt Count (130-400) K/uL MPV (9.4-12.4) fL Immature Gran % (Auto) % Neut % (Auto) % Lymph % (Auto) % [place] % (Auto) % Eos % (Auto) % Baso % (Auto) % Neut # (Auto) (1.40-6.50) K/uL Lymph # (Auto) (1.2-3.4) K/uL [place] # (Auto) (0.11-0.59) K/uL Eos # (Auto) (0-0.50) K/uL Baso # (Auto) (0-0.2) K/uL Immature Gran # (Auto) (0.01-0.20) K/uL PT (9.0-12.0) Seconds INR (0.9-1.1) APTT (21.0-31.0) Seconds PTT Ratio Sodium (136-145) mmol/L Potassium (3.5-5.1) mmol/L Chloride (98-107) mmol/L Carbon Dioxide (21-32) mmol/L Anion Gap (3-11) BUN (6-23) mg/dl Creatinine (0.6-1.4) mg/dl Est Cr Clr Drug Dosing ml/min Est GFR ( Amer) ml/min Est GFR (Non-Af Amer) ml/min BUN/Creatinine Ratio (10-20) Glucose (70-99(Fasting)) mg/dl Calcium (8.6-10.3) mg/dl Magnesium (1.7-2.4) mg/dl Total Bilirubin (0.2-1.0) mg/dl AST (13-39) U/L ALT (7-52) U/L Alkaline Phosphatase (34-104) U/L Troponin I High Sens (0-20) pg/ml Total Protein (6.0-8.3) gm/dl Albumin (3.4-5.0) gm/dl Globulin (2.5-4.0) gm/dl Albumin/Globulin Ratio (0.9-2) Lyme Disease IgG Ab Negative (Negative) Lyme Disease IgM Ab Negative (Negative) SARS-CoV-2, RNA, NAAT NEGATIVE (NEGATIVE) Administered Medications Allopurinol (Allopurinol 300 Mg Tab) [address] [facility] Stop: 01/05/23 08:59 Last Admin: 12/06/22 07:30 Dose: 150 mg Documented By: MELIZA Amlodipine Besylate (Amlodipine Besylate 5 Mg Tab) 2.[address] [facility] Stop: 01/05/23 08:59 Last Admin: 12/06/22 07:30 Dose: 2.5 mg Documented By: MELIZA Atorvastatin Calcium (Atorvastatin 40 Mg Tab) 40 mg PO [facility] Stop: 01/04/23 20:59 Last Admin: 12/05/22 20:11 Dose: 40 mg Documented By: SINDHU Clopidogrel Bisulfate (Clopidogrel Bisulfate 75 Mg Tab) [address] [facility] Stop: 01/05/23 08:59 Last Admin: 12/06/22 07:30 Dose: 75 mg Documented By: MELIZA Latanoprost (Latanoprost 0.005% Op Soln 2.5 Ml Btl) 1 drops OP [facility] Stop: 01/04/23 21:59 Last Admin: 12/05/22 22:08 Dose: 1 drops Documented By: SINDHU Discontinued Medications Clopidogrel Bisulfate (Clopidogrel Bisulfate 300 Mg Tab) 300 mg PO NOW ONE Stop: 12/05/22 19:01 Last Admin: 12/05/22 20:10 Dose: 300 mg Documented By: SINDHU Ioversol (Optiray 320 500ml) 120 ml IV ONCE ONE Stop: 12/05/22 13:56 Last Admin: 12/05/22 13:55 Dose: 120 ml Documented By: MARBIN Discharge Plan Visit Data Chief Complaint: Weakness Stated Complaint: RIGHT ARM AND RIGHT LEG WEAKNESS - POSS TIA ED Provider: Kat Clifford Discharge Problem: Right sided weakness Patient Disposition: Admitted As Inpatient Discharge Instructions Interventions: ED Discharge Assessment Last Done: 12/05/22 18:35
[2022-12-05 13:06] LABS: Basophils # (auto) 0.05 K/uL (0-0.2); Basophils % (auto) 0.5 %; Eosinophils # (auto) 0.14 K/uL (0-0.50); Eosinophils % (auto) 1.4 %; Hematocrit (blood only) 43.1 % (42.0-52.0); Hemoglobin 15.1 g/dl (14.0-18.0); Lymphocytes # (auto) 1.93 K/uL (1.2-3.4); Lymphocytes % (auto) 19.1 %; Mean Corpuscular Hemoglobin 32.5 pg (25.0-34.0); Mean Corpuscular Volume 92.7 fL (80.0-100.0); Mean Platelet Volume 11.3 fL (9.4-12.4); Monocytes % (auto) 10.9 %; Neutrophils # (auto) 6.79 K/uL (1.40-6.50); Neutrophils % (auto) 67.1 %; Platelet Count 199 K/uL (130-400); RDW Coefficient of Variation 11.8 % (11.5-14.5); RDW Standard Deviation 40.2 fL (36.4-46.3); Red Blood Count 4.65 M/uL (4.70-6.10); White Blood Count 10.11 K/ul (4.8-10.8)
[2022-12-05 13:12] LABS: Albumin Globulin Ratio 1.6 (0.9-2); Albumin Level 4.1 gm/dl (3.4-5.0); BUN Creatinine Ratio 31.3 (10-20); Bilirubin,Total 0.7 mg/dl (0.2-1.0); Creatinine Clr Calc Pharmacy 77.3 ml/min; Est GFR (African American) 89.7 ml/min; Est GFR (Non-African American) 77.4 ml/min; Globulin 2.5 gm/dl (2.5-4.0); Magnesium 2.1 mg/dl (1.7-2.4); Total Protein 6.6 gm/dl (6.0-8.3)
[2022-12-05 13:18] LABS: Troponin I High Sensitivity 6.5 pg/ml (0-20)
[2022-12-05 13:34] LABS: Lyme Ab IgG w/WB Rflx Negative (Negative); Lyme Ab IgM w/WB Rflx Negative (Negative)
[2022-12-05 13:38] LABS: Partial Thromboplastin Ratio 0.9; Partial Thromboplastin Time 24.6 Seconds (21.0-31.0)
[2022-12-05] MEDS ORDERED: OPTIRAY 320 500ml IV ONE (13:55)
--- NOTE | 2022-12-05 14:38 | CT Scan Report ---
CT angio neck with con, CT angio head w con, CT head/brain wo con CLINICAL HISTORY: neuro deficit, acute stroke suspected TECHNIQUE: Contiguous axial CT images of the head were acquired from the base of the skull to the pablo adiel without intravenous contrast administration. CT angiography of the head and neck was performed f ollowing intravenous administration of iodinated contrast. Coronal and sagittal MIPS were obtained fr om the axial data set and were submitted for review. Automated dose lowering techniques and/or adjus tment according to patient size were utilized for this examination. All measurements were calculated based on NASCET criteria. CT DOSE: 1053.02 mGy.cm Comparison: None available at the time of this dictation. FINDINGS: CT head: There is no acute intracranial hemorrhage or evidence of acute territorial infarction. No sh ift of the midline structures, mass effect, or extra-axial abnormalities are shown. Lungs and soft tissues are unremarkable. CTA Neck: A 3 vessel aortic arch is shown. There is no significant atherosclerotic plaque in the aor tic arch or the origins of the innominate, left common carotid, and left subclavian arteries. The co mmon carotid, external carotid, cervical segments of the internal carotid arteries, and the cervical segments of the vertebral arteries are patent without hemodynamically significant stenosis. The verte bral arteries are codominant. CTA Head: The anterior and posterior cerebral circulations are patent. No hemodynamically significan t stenosis, aneurysm, dissection, or arteriovenous malformation is shown. IMPRESSION: 1. No acute intracranial hemorrhage, evidence of acute territorial infarction, or other acute intrac ranial disease process. 2. No occlusion, hemodynamically significant stenosis, or dissection in the major cervical arteries. 3. No occlusion, hemodynamically significant stenosis, aneurysm, dissection, or arteriovenous malfor mation in the major intracranial arteries. Assessment of stenosis of the internal carotid arteries is based on NASCET criteria. ACT 112: Negative or not required by law. Electronically signed by: Vamshi Hay M.D. 12/05/2022 2:36 PM
--- NOTE | 2022-12-05 15:28 | History & Physical Report ---
Date of Service December 05, 2022 Assessment & Plan (1) Stroke-like symptoms: Plan: Patient is 67-year-old male with PMH HTN, paroxysmal atrial tachycardia, bradycardia, RBBB, gout presented to ER with complaint of right arm and right weakness that occurred yesterday 12/04/22 at 15:00. Right arm weakness resolved in 30 minutes, RLE weakness resolved in 60 minutes. Had visual disturbance. Denies ARZOLA, speech changes, facial drooping, paresthesias. In ER initially hypertensive 175/106, HR: 52, R: 12, 97% on RA No significant electrolyte abnormality CT head, CTA head and neck: 1. No acute intracranial hemorrhage, evidence of acute territorial infarction, or other acute intracranial disease process. 2. No occlusion, hemodynamically significant stenosis, or dissection in the major cervical arteries. 3. No occlusion, hemodynamically significant stenosis, aneurysm, dissection, or arteriovenous malformation in the major intracranial arteries. DDX: TIA, CVA, atypical migraine Took 325mg aspirin this morning prior to ER arrival Tele to monitor for arrhythmias Lipids, A1c in am MRI brain If MRI shows stroke, consider adding echo PT/OT consult Monitor BP. Repeat BP in ER down to 145/90 Start aspirin, Plavix, atorvastatin Neurology consult (2) Hypertension: Plan: In ER initially hypertensive 175/106, trended down to 145/90 Pt's home BP's reported: 116/64 on 12/04/22 and 122/65 on 12/05/22 Monitor BP Continue low dose amlodipine (3) Gout: Plan: History Gout Continue allopurinol (4) Glaucoma: Plan: Continue latanoprost eye drops DVT Prophylaxis SCDs Full Code as per discussion with pt Follows with Dr Arie Castro for routine care Pt was seen and care coordinated with Dr Blakely. See addendum I spent a total of 75 minutes reviewing notes, outpatient records, labs, medication, coordinating, documenting and providing care for this patient e xcluding time spent in the performance of separately billed services. History of Present Illness Chief Complaint: Right sided weakness Primary Care Provider: Arie Castro DO Patient is 67-year-old male with PMH HTN, paroxysmal atrial tachycardia, bradycardia, RBBB, gout presented to ER with complaint of right-sided weakness that occurred yesterday. Patient states yesterday was sitting in his office chair using his iPad when he had sudden onset of right arm weakness. Symptom onset was 3 PM yesterday. He states that his right arm just fell off of the chair arm. He noted his right arm was very weak. He states he was able to lift his arm. Denies any noted numbness or tingling. He alerted his who came in who tried to have him stand and he had noted right leg weakness. He states right arm weakness lasted about 30 minutes and right leg weakness lasted approximately 60 minutes. Denies any speech changes. He later developed visual disturbance described as kaleidoscope in vision. He did not develop headache. He states he took a 325 aspirin. He reports history of intermittent visual disturbances that occur every couple months and this has been occurring for over 30 years. 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 He states he never has headaches associated with this. In the past has never had any associated weakness with these visual disturbances. Patient reports did have one prior event of bilateral leg weakness in the past that resolved quickly. Patient reports is physically active and rides bicycle regularly. He states last night he did stationary bicycle ride and did not have any further symptoms. Took 325mg aspirin this morning. Patient decided to be evaluated today and came to ER. Denies fever/chills, diaphoresis, N/V/D/C, dizziness, syncope, vision loss, diplopia, speech changes, facial drooping, neck pain, CP, SOB, orthopnea, palpitations, cough, sore throat, choking, otalgia, rhinorrhea, abdominal pain, extremity edema, rashes, urinary symptoms. Allergies Allergy/AdvReac Type Severity Reaction Status Date / Time No Known Allergies Allergy Verified 02/02/22 10:24 Home Medications Medication Instructions Recorded Confirmed Type allopurinol 300 mg tablet 150 mg PO QAM 04/30/19 12/05/22 History amlodipine 2.5 mg tablet 2.5 mg PO QAM 04/30/19 12/05/22 History multivitamin 1 cap PO DAILY 04/30/19 12/05/22 History omega 6-qji-vnv-fish oil 1,000 mg 1 cap PO DAILY 04/30/19 12/05/22 History (120 mg-180 mg) capsule (Fish Oil) ibuprofen 200 mg capsule 200 mg PO Q6H PRN Pain 05/29/19 12/05/22 History methylcellulose (with sugar) oral 1 tbsp PO DAILY 05/29/19 12/05/22 History powder (Citrucel (sucrose) oral powder) latanoprost 0.005 % eye drops 1 drp ophthalmic (eye) DAILY 12/05/22 12/05/22 History magnesium 100 mg tablet 100 mg PO DAILY 12/05/22 12/05/22 History Past Med/Surg History Medical History (Updated 12/05/22 @ 16:36 by Negrita Corral PA-C) Borderline high blood pressure Elbow problem L Frequent urination at night Glaucoma Gout HX OF History of cardiac monitoring CURRENT - LINQ MONITOR IN PLACE Lumbar spondylosis Osteoarthritis Right bundle branch block HX OF/RESTING HEART RATE IN 40'S Right hip pain Right knee DJD Trouble swallowing ONLY WITH CERTAIN TYPES OF PILLS Vasovagal syncope Happened a year ago. No LOC per patient report. Only occurred after heavy exercise. Had LINQ implanted 04/04/[address] Green. At that time discussion regarding possible pacemaker but patient went to [facility] for a second opinion and was told pacer not indicated at this time. Surgical History History of arthroscopy of right knee History of colonoscopy History of eye surgery TEENAGER BILAT (X1 PROCEDURE) GLAUCOMA SURGERY L EYE (X2) History of hemorrhoidectomy History of left cataract surgery History of right cataract surgery HYDRUS STENT Family History Grandfather (Maternal) Family history of diabetes mellitus Social History Smoking Status: Never smoker Do You Dip or Chew Tobacco: No; Hx Alcohol Use: Yes Alcohol type: beer and wine Hx Substance Use: No Preferred Language: Palestinian Communication Ability: Effective Dance Hall Hostess Required: No Beliefs That Will Affect Care: None marital status: Current Living Situation: Spouse Feels Safe at Home: Yes Assistive Devices: Glasses and Walker Review of Systems Review of Systems: All systems reviewed & are unremarkable except as noted in HPI & below Physical Exam Physical Exam: General: no distress, WDWN Head: normocephalic, atraumatic Eyes: PERRL, EOM's intact, conjunctiva non-injected, anicteric ENT: normal inspection external ears, nose, mucous membranes moist Neck: supple, trachea midline, non-tender Lungs: clear, no respiratory distress, no wheezing/rhonchi/rales CV: RRR, no murmur, no JVD, no pretibial edema Abd: normal BS, soft, non-tender Ext: no cyanosis, no calf tenderness Neuro: A&O x 3, normal affect,No nystagmus, facial sensation is intact, face is strong and symmetric, hearing grossly intact, soft palate elevates symmetrically, no dysarthria, shoulder shrug intact, tongue is midline, normal movement, no fasciculations, strength 5/5 throughout BUE and BLE Skin: warm, dry Results & Data Results & Data Vital Signs (Past 12 Hours) Vital Signs Temp Pulse Resp BP Pulse Ox O2 Del Method 12/05/22 12:40 54 L 11 L 175/106 H 97 12/05/22 12:41 52 L 12/05/22 12:08 36.3 C L 56 L 20 170/92 H 97 Room Air Laboratory Results Short CBC 12/05/22 Range/Units 12:30 WBC 10.11 (4.8-10.8) K/ul Hgb 15.1 (14.0-18.0) g/dl Hct 43.1 (42.0-52.0) % Plt Count 199 (130-400) K/uL BMP 12/05/22 12:30 Sodium 139 Potassium 4.0 Chloride 103 Carbon Dioxide 30 BUN 31 H Creatinine 0.99 Glucose 114 H Calcium 9.0 Liver Function 12/05/22 Range/Units 12:30 Total Bilirubin 0.7 (0.2-1.0) mg/dl AST 17 (13-39) U/L ALT 10 (7-52) U/L Alkaline Phosphatase 83 (34-104) U/L Albumin 4.1 (3.4-5.0) gm/dl Diagnostic Findings Head CT 12/05/22 12:38 CT angio neck with con, CT angio head w con, CT head/brain wo con CLINICAL HISTORY: neuro deficit, acute stroke suspected TECHNIQUE: Contiguous axial CT images of the head were acquired from the base of the skull to the vertex without intravenous contrast administration. CT angiography of the head and neck was performed following intravenous administration of iodinated contrast. Coronal and sagittal MIPS were obtained from the axial data set and were submitted for review. Automated dose lowering techniques and/or adjustment according to patient size were utilized for this examination. All measurements were calculated based on NASCET criteria. CT DOSE: 1053.02 mGy.cm Comparison: None available at the time of this dictation. FINDINGS: CT head: There is no acute intracranial hemorrhage or evidence of acute territorial infarction. No shift of the midline structures, mass effect, or extra-axial abnormalities are shown. Lungs and soft tissues are unremarkable. CTA Neck: A 3 vessel aortic arch is shown. There is no significant atherosclerotic plaque in the aortic arch or the origins of the innominate, left common carotid, and left subclavian arteries. The common carotid, external carotid, cervical segments of the internal carotid arteries, and the cervical segments of the vertebral arteries are patent without hemodynamically significant stenosis. The vertebral arteries are codominant. CTA Head: The anterior and posterior cerebral circulations are patent. No hemodynamically significant stenosis, aneurysm, dissection, or arteriovenous malformation is shown. IMPRESSION: 1. No acute intracranial hemorrhage, evidence of acute territorial infarction, or other acute intracranial disease process. 2. No occlusion, hemodynamically significant stenosis, or dissection in the major cervical arteries. 3. No occlusion, hemodynamically significant stenosis, aneurysm, dissection, or arteriovenous malformation in the major intracranial arteries. Assessment of stenosis of the internal carotid arteries is based on NASCET criteria. ACT 112: Negative or not required by law. Electronically signed by: Vamshi Hay M.D. 12/05/2022 2:36 PM Head CTA 12/05/22 12:38 CT angio neck with con, CT angio head w con, CT head/brain wo con CLINICAL HISTORY: neuro deficit, acute stroke suspected TECHNIQUE: Contiguous axial CT images of the head were acquired from the base of the skull to the vertex without intravenous contrast administration. CT angiography of the head and neck was performed following intravenous administration of iodinated contrast. Coronal and sagittal MIPS were obtained from the axial data set and were submitted for review. Automated dose lowering techniques and/or adjustment according to patient size were utilized for this examination. All measurements were calculated based on NASCET criteria. CT DOSE: 1053.02 mGy.cm Comparison: None available at the time of this dictation. FINDINGS: CT head: There is no acute intracranial hemorrhage or evidence of acute territorial infarction. No shift of the midline structures, mass effect, or extra-axial abnormalities are shown. Lungs and soft tissues are unremarkable. CTA Neck: A 3 vessel aortic arch is shown. There is no significant atherosclerotic plaque in the aortic arch or the origins of the innominate, left common carotid, and left subclavian arteries. The common carotid, external carotid, cervical segments of the internal carotid arteries, and the cervical segments of the vertebral arteries are patent without hemodynamically significant stenosis. The vertebral arteries are codominant. CTA Head: The anterior and posterior cerebral circulations are patent. No hemodynamically significant stenosis, aneurysm, dissection, or arteriovenous malformation is shown. IMPRESSION: 1. No acute intracranial hemorrhage, evidence of acute territorial infarction, or other acute intracranial disease process. 2. No occlusion, hemodynamically significant stenosis, or dissection in the major cervical arteries. 3. No occlusion, hemodynamically significant stenosis, aneurysm, dissection, or arteriovenous malformation in the major intracranial arteries. Assessment of stenosis of the internal carotid arteries is based on NASCET criteria. ACT 112: Negative or not required by law. Electronically signed by: Vamshi Hay M.D. 12/05/2022 2:36 PM Neck CTA 12/05/22 12:38 CT angio neck with con, CT angio head w con, CT head/brain wo con CLINICAL HISTORY: neuro deficit, acute stroke suspected TECHNIQUE: Contiguous axial CT images of the head were acquired from the base of the skull to the vertex without intravenous contrast administration. CT angiography of the head and neck was performed following intravenous administration of iodinated contrast. Coronal and sagittal MIPS were obtained from the axial data set and were submitted for review. Automated dose lowering techniques and/or adjustment according to patient size were utilized for this examination. All measurements were calculated based on NASCET criteria. CT DOSE: 1053.02 mGy.cm Comparison: None available at the time of this dictation. FINDINGS: CT head: There is no acute intracranial hemorrhage or evidence of acute territorial infarction. No shift of the midline structures, mass effect, or extra-axial abnormalities are shown. Lungs and soft tissues are unremarkable. CTA Neck: A 3 vessel aortic arch is shown. There is no significant atherosclerotic plaque in the aortic arch or the origins of the innominate, left common carotid, and left subclavian arteries. The common carotid, external carotid, cervical segments of the internal carotid arteries, and the cervical segments of the vertebral arteries are patent without hemodynamically significant stenosis. The vertebral arteries are codominant. CTA Head: The anterior and posterior cerebral circulations are patent. No hemodynamically significant stenosis, aneurysm, dissection, or arteriovenous malformation is shown. IMPRESSION: 1. No acute intracranial hemorrhage, evidence of acute territorial infarction, or other acute intracranial disease process. 2. No occlusion, hemodynamically significant stenosis, or dissection in the major cervical arteries. 3. No occlusion, hemodynamically significant stenosis, aneurysm, dissection, or arteriovenous malformation in the major intracranial arteries. Assessment of stenosis of the internal carotid arteries is based on NASCET criteria. ACT 112: Negative or not required by law. Electronically signed by: Vamshi Hay M.D. 12/05/2022 2:36 PM Supervising Physician Co-Signing Physician Notes I have seen and examined the patient and have discussed the case with the provider above. I agree with the assessment and plan as stated with the following exceptions. 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 As stated above, the patient felt sudden motor weakness in his right arm and leg simultaneously yesterday while reading in a chair followed by the same known visual aura and without headache. His symptoms resolved after about one hour and he denies any speech issues, facial droop or other stroke symptoms during this time or since. He reports feeling both legs become heavy all of a sudden in the past where he can't use them for a few minutes and this resolved. This episode yesterday was the first time only one side was affected. He has a history of sinus bradycardia that is longstanding and glaucoma which causes his left eye to be slightly asymmetric to his right. On exam he is hemodynamically stable and without gross focal deficits. He is mentating clearly and has no issues with speech and no tremor. DTRs are 2/4 bilaterally in brachioradialis and knees. Strength 5/5 throughout. EOMI, CN 2-12 are intact. Workup including CTA head and neck are clear of LVO. CBC is within normal limits and chem panel reveals an elevated BUN/creatinine ratio that may suggest possible dehydration. Lyme screen was negative. EKG SB53 with RBBB and no ST changes that would suggest ischemia. 1. TIA 2. HTN 3. sinus bradycardia 67 yo M presenting with high risk TIA symptoms including hemiparesis for >60 minutes. Agree with differential diagnosis including complex migraine. Admit to telemetry. Given plavix load of 300mg then cont 75mg daily. Patient took ASA 325mg at home and will cont with 81mg PO daily. MRI pending. Neuro consult. PT/OT/speech as needed. DO Reddy
[2022-12-05] MEDS ORDERED: POLYETHYLENE (MIRALAX) 17 GM PACK PO PRN (18:46)
[2022-12-05] MEDS ORDERED: PHARMACIST DISCHARGE MED REC CONSULT PRN (18:46)
[2022-12-05] MEDS ORDERED: ACETAMINOPHEN 325 MG TAB PO PRN (18:46)
[2022-12-05] MEDS ORDERED: MAGNESIUM HYDROXIDE SUSP 30 ML UDC PO PRN (18:46)
[2022-12-05] MEDS ORDERED: CLOPIDOGREL BISULFATE 300 MG TAB PO ONE (19:00)
[2022-12-05] MEDS ORDERED: ATORVASTATIN 40 MG TAB PO SCH (21:00)
[2022-12-05] MEDS ORDERED: LATANOPROST 0.005% OP SOLN 2.5 ML BTL OP SCH (22:00)
--- NOTE | 2022-12-06 01:43 | Magnetic Resonance Report ---
Exam(s): MRI HEAD Without Contrast EXAM: MR Head Without Intravenous Contrast CLINICAL HISTORY: Reason for exam: TIA symptoms, right sided weakness, high risk TIA. TECHNIQUE: Magnetic resonance images of the head/brain without intravenous contrast in multiple planes. COMPARISON: Comparison is made to prior noncontrast head CT from December 05, 2022. FINDINGS: Brain: Mild nonspecific white matter changes. No mass. No hemorrhage. No acute infarct. The flow voids at the base of the brain are intact. Prominent pituitary gland with convex superior margin measuring 8.7 mm in height. Ventricles: Unremarkable. No ventriculomegaly. Bones/joints: Unremarkable. Sinuses: Unremarkable as visualized. No acute sinusitis. Mastoid air cells: Unremarkable as visualized. No mastoid effusion. Orbits: Bilateral lens replacements. Findings concerning for thyroid ophthalmopathy, which can be seen in the setting of Graves' disease. IMPRESSION: No evidence of acute intracranial pathology. Mild nonspecific white matter changes. Findings concerning for pituitary adenoma. Recommend correlation with hormonal status. If there is continued clinical concern, an MRI of the pituitary gland with and without contrast may be of benefit for further evaluation. Electronically signed by: Lisa Bradley MD 12/06/22 01:41 AM
[2022-12-06 08:53] LABS: Basophils # (auto) 0.04 K/uL (0-0.2); Basophils % (auto) 0.5 %; Eosinophils # (auto) 0.18 K/uL (0-0.50); Eosinophils % (auto) 2.3 %; Hematocrit (blood only) 43.3 % (42.0-52.0); Immature Granulocytes # (auto) 0.05 K/uL (0.01-0.20); Immature Granulocytes % (auto) 0.6 %; Lymphocytes % (auto) 22.7 %; Mean Corpuscular Hemoglobin 32.2 pg (25.0-34.0); Mean Corpuscular Hgb Conc 34.6 g/dL (32.0-36.0); Mean Corpuscular Volume 92.9 fL (80.0-100.0); Mean Platelet Volume 11.5 fL (9.4-12.4); Monocytes % (auto) 11.4 %; Neutrophils # (auto) 4.95 K/uL (1.40-6.50); Neutrophils % (auto) 62.5 %; Platelet Count 204 K/uL (130-400); RDW Coefficient of Variation 11.9 % (11.5-14.5); RDW Standard Deviation 40.3 fL (36.4-46.3); Red Blood Count 4.66 M/uL (4.70-6.10); White Blood Count 7.92 K/ul (4.8-10.8)
[2022-12-06 08:56] LABS: BUN Creatinine Ratio 26.9 (10-20); Calcium 8.8 mg/dl (8.6-10.3); Creatinine Clr Calc Pharmacy 75.8 ml/min; Est GFR (African American) 84.5 ml/min; Est GFR (Non-African American) 72.9 ml/min; Potassium 4.1 mmol/L (3.5-5.1)
[2022-12-06] MEDS ORDERED: CLOPIDOGREL BISULFATE 75 MG TAB PO SCH (09:00)
[2022-12-06] MEDS ORDERED: allopurinoL 300 MG TAB PO SCH (09:00)
[2022-12-06] MEDS ORDERED: amLODIPine BESYLATE 5 MG TAB PO SCH (09:00)
[2022-12-06] MEDS ORDERED: LATANOPROST 0.005% OP SOLN 2.5 ML BTL OP SCH (09:00)
[2022-12-06 09:40] LABS: Thyroid Stimulating Hormone 2.992 uIu/ml (0.300-4.500)
[2022-12-06 09:42] LABS: T4 Free Thyroxine 1.21 ng/dl (0.61-1.60)
[2022-12-06 09:45] LABS: Prolactin 8.51 ng/ml
[2022-12-06 10:08] LABS: Follicle Stimulating Hormone 7.38 IU/L
[2022-12-06 10:09] LABS: Luteinizing Hormone 2.25 IU/L
[2022-12-06 10:19] LABS: Estimated Average Glucose 103 mg/dl; Hemoglobin A1C 5.2 % (4.5-5.6)
--- NOTE | 2022-12-06 12:33 | Hospitalist Progress Note ---
Date of Service December 06, 2022 Assessment & Plan (1) Stroke-like symptoms: Plan: Patient is 67-year-old male with PMH HTN, paroxysmal atrial tachycardia, bradycardia, RBBB, gout presented to ER with complaint of right arm and right weakness that occurred yesterday 12/04/22 at 15:00. Right arm weakness resolved in 30 minutes, RLE weakness resolved in 60 minutes. Had visual disturbance. Denies ARZOLA, speech changes, facial drooping, paresthesias. Stroke Like Symptoms DD: Due to Pituitary adenoma Vs TIA H/O Ocular Migraine --MRI Brain: No evidence of acute intracranial pathology. Mild nonspecific white matter changes. Findings concerning for pituitary adenoma. Recommend correlation with hormonal status. If there is continued clinical concern, an MRI of the pituitary gland with and without contrast may be of benefit for further evaluation. --Head/Neck CTA:No acute intracranial hemorrhage, evidence of acute territorial infarction, or other acute intracranial disease process. No occlusion, hemodynamically significant stenosis, or dissection in the major cervical arteries. No occlusion, hemodynamically significant stenosis, aneurysm, dissection, or arteriovenous malformation in the major intracranial arteries. --LDL:68 --HbA1C:pending -- TSH, free T4 normal. -- FSH 7.38, LH 2.05, prolactin 8.51 -- ACTH, insulin like growth factor I pending Neurology consulted PT OT, speech therapy evaluation completed Continue aspirin, Plavix, statin for now Further management based on neurology recommendations (2) Hypertension: Plan: Continue amlodipine Monitor (3) Gout: Plan: History Gout Continue allopurinol (4) Glaucoma: Plan: Continue latanoprost eye drops DVT Prophylaxis SCDs for now Code Status Full Code Admission and Anticipated Discharge Date Admission Date: December 05, 2022 Subjective Patient is seen and examined at bedside States feeling well today Right-sided weakness resolved Denies any visual symptoms today Also denies any chest pain, dyspnea, dizziness, nausea, abdominal pain Family at bedside No other complaints Review of Systems Review of Systems: All systems reviewed & are unremarkable except as noted in Subjective Physical Exam Physical Exam: Physical Exam: Vitals signs as noted above General Appearance:Moderately built and nourished, no apparent distress Head: normocephalic, Atraumatic Eyes: normal inspection, EOMI, L Eye lip droopy-chronic per patient Neck: supple, Trachea midline Respiratory/Chest: Normal breath sounds, CTA, No accessory muscle use Cardiovascular: S1, S2, No murmur, Bradycardia Abdomen/GI:Soft, Non tender, Bowel sounds present Extremities/Musculoskeletal:normal inspection, no edema Neurologic/Psych:AAOX3, grossly no focal neurological deficits Skin: normal color, warm Results & Data Results & Data Vital Signs (Past 12 Hours) Vital Signs Temp Pulse Resp BP Pulse Ox O2 Del Method 12/06/22 11:08 36.7 C 47 L 18 131/80 98 Room Air 12/06/22 08:35 36.6 C 52 L 16 122/74 96 Room Air 12/06/22 02:57 36.5 C 49 L 16 125/78 98 Room Air Laboratory Results Short CBC 12/05/22 12/06/22 Range/Units 12:30 07:50 WBC 10.11 7.92 (4.8-10.8) K/ul Hgb 15.1 15.0 (14.0-18.0) g/dl Hct 43.1 43.3 (42.0-52.0) % Plt Count 199 204 (130-400) K/uL BMP 12/05/22 12/06/22 12:30 07:50 Sodium 139 139 Potassium 4.0 4.1 Chloride 103 103 Carbon Dioxide 30 29 BUN 31 H 28 H Creatinine 0.99 1.04 Glucose 114 H 107 H Calcium 9.0 8.8 Liver Function 12/05/22 Range/Units 12:30 Total Bilirubin 0.7 (0.2-1.0) mg/dl AST 17 (13-39) U/L ALT 10 (7-52) U/L Alkaline Phosphatase 83 (34-104) U/L Albumin 4.1 (3.4-5.0) gm/dl
--- NOTE | 2022-12-06 14:23 | Neurology Consultation ---
Date of Consultation December 06, 2022 Assessment & Plan (1) TIA (transient ischemic attack): Transient R sided weakness is consistent with a TIA though workup has been largely unremarkable. CTA unremarkable and MRI with only an incidental pituitary adenoma. Normal hormone levels, not large enough to cause hemianopsia and none seen on exam. Recommend dual antiplatelet therapy for 21 days, then aspirin 81mg daily. Despite LDL 68, would still proceed with lipitor 40mg daily until followup. Neurology follow-up in 6-8 weeks. Given history of negative loop recorder, further zio patch/holter monitor seems low yield. -- Aspirin 81mg daily and plavix 75mg daily for 21 days, then aspirin 81mg daily -- Lipitor 40mg daily -- No further cardiac monitoring -- Neuro follow-up 6-8 weeks for TIA Telehealth Consultation Telehealth Information Telehealth Information: I performed this visit using a real-time telehealth connection between my location and the patients location ([facility]). After co nnecting through interactive tele-video, patient was identified by name and date of and/or wristband check.Patient (or authorized healthcare sales representative facility services) was informed that this was a telemedicine visit and it was being conducted confidentially over secure lines. My office door was closed and no one else was present in the room with me.Patient (or authorized healthcare sales representative facility services) provided consent to proceed with the visit, expressed an understanding of privacy and security of the telemedicine visit, and gave permission to have a hospital sales representative facility services in the room in order to assist with the visit and to conduct portions of the visit, as needed. I informed the patient (or authorized healthcare sales representative facility services) that I reviewed their record and presented the opportunity for them to ask any questions regarding the visit today. The patient agreed to participate. History of Present Illness Reason for Consultation: TIA Requesting Physician: Dr. Whyte Attending Physician: Eder Whyte MD History of Present Illness Luis Smith is a 67 yo M presenting with transient R sided weakness lasting 30 minutes. He has not had any further episodes since admission. He was not taking any antiplatelets prior to coming to the hospital. Two prior episodes involved bilateral lower extremity weakness after exertion. Never had unilateral weakness like yesterday. Of note, had an implatable loop recorder in the past, recently explanated due to battery depletion that never revealed afib or atrial tachycardia. Allergies Allergy/AdvReac Type Severity Reaction Status Date / Time No Known Allergies Allergy Verified 02/02/22 10:24 Home Medications Medication Instructions Recorded Confirmed Type allopurinol 300 mg tablet 150 mg PO QAM 04/30/19 12/05/22 History amlodipine 2.5 mg tablet 2.5 mg PO QAM 04/30/19 12/05/22 History multivitamin 1 cap PO DAILY 04/30/19 12/05/22 History omega 9-hpd-ndx-fish oil 1,000 mg 1 cap PO DAILY 04/30/19 12/05/22 History (120 mg-180 mg) capsule (Fish Oil) ibuprofen 200 mg capsule 200 mg PO Q6H PRN Pain 05/29/19 12/05/22 History methylcellulose (with sugar) oral 1 tbsp PO DAILY 05/29/19 12/05/22 History powder (Citrucel (sucrose) oral powder) latanoprost 0.005 % eye drops 1 drp ophthalmic (eye) DAILY 12/05/22 12/05/22 History magnesium 100 mg tablet 100 mg PO DAILY 12/05/22 12/05/22 History Patient History Medical History (Updated 12/06/22 @ 14:20 by Kameron Dale MD) Borderline high blood pressure Elbow problem L Frequent urination at night Glaucoma Gout HX OF History of cardiac monitoring CURRENT - LINQ MONITOR IN PLACE Lumbar spondylosis Osteoarthritis Right bundle branch block HX OF/RESTING HEART RATE IN 40'S Right hip pain Right knee DJD Trouble swallowing ONLY WITH CERTAIN TYPES OF PILLS Vasovagal syncope Happened a year ago. No LOC per patient report. Only occurred after heavy exercise. Had LINQ implanted 04/04/[address] Green. At that time discuss ion regarding possible pacemaker but patient went to [facility] for a second opinion and was told pacer not indicated at this time. Surgical History History of arthroscopy of right knee History of colonoscopy History of eye surgery TEENAGER BILAT (X1 PROCEDURE) GLAUCOMA SURGERY L EYE (X2) History of hemorrhoidectomy History of left cataract surgery History of right cataract surgery HYDRUS STENT Family History Grandfather (Maternal) Family history of diabetes mellitus Social History Smoking Status: Never smoker Do You Dip or Chew Tobacco: No; Hx Alcohol Use: No Hx Substance Use: No Preferred Language: Yakut Communication Ability: Effective Strategic Client Executive Required: No Beliefs That Will Affect Care: None marital status: Current Living Situation: Spouse Feels Safe at Home: Yes Assistive Devices: Glasses Review of Systems +R sided transient weakness Physical Exam Neurological Examination: Mental Status: Awake and alert. Oriented to person, place, and time. Fluent. Comprehension intact. Affect appropriate. Cranial Nerves: II: Reads NIHSS cards, pupils 3/3 to 2/2, abraham grossly intact. III/IV/: Versions intact without nystagmus, no gaze preference. V: Facial sensation symmetric to light touch VII: Facial expression symmetric VIII: Hearing intact to voice IX/X: Palate elevates symmetrically XI: Shoulder shrug symmetric XII: Tongue midline Motor: Strength was symmetric and antigravity throughout. Pronator drift was absent. There were no abnormal movements. Reflexes: Unable to assess over telemedicine Results & Data Vital Signs (Past 12 Hours) Vital Signs Temp Pulse Resp BP Pulse Ox O2 Del Method 12/06/22 11:08 36.7 C 47 L 18 131/80 98 Room Air 12/06/22 08:35 36.6 C 52 L 16 122/74 96 Room Air 12/06/22 02:57 36.5 C 49 L 16 125/78 98 Room Air Laboratory Results Abnormal lab results 12/06/22 12/06/22 Range/Units 07:50 07:50 RBC 4.66 L (4.70-6.10) M/uL Blount # (Auto) 0.90 H (0.11-0.59) K/uL BUN 28 H (6-23) mg/dl BUN/Creatinine Ratio 26.9 H (10-20) Glucose 107 H (70-99(Fasting)) mg/dl Diagnostic Findings MRI brain - incidental pituitary adenoma
[2022-12-06] MEDS ORDERED: STROKE PATIENT DISCHARGE STA (14:32)
--- NOTE | 2022-12-06 14:34 | Discharge Summary ---
Date of Service December 06, 2022 Admission HPI Per Admitting Provider Patient is 67-year-old male with PMH HTN, paroxysmal atrial tachycardia, bradycardia, RBBB, gout presented to ER with complaint of right-sided weakness that occurred yesterday. Patient states yesterday was sitting in his office chair using his iPad when he had sudden onset of right arm weakness. Symptom onset was 3 PM yesterday. He states that his right arm just fell off of the chair arm. He noted his right arm was very weak. He states he was able to lift his arm. Denies any noted numbness or tingling. He alerted his who came in who tried to have him stand and he had noted right leg weakness. He states right arm weakness lasted about 30 minutes and right leg weakness lasted approximately 60 minutes. Denies any speech changes. He later developed visual disturbance described as kaleidoscope in vision. He did not develop headache. He states he took a 325 aspirin. He reports history of intermittent visual disturbances that occur every couple months and this has been occurring for over 30 years. 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 He states he never has headaches associated with this. In the past has never had any associated weakness with these visual disturbances. Patient reports did have one prior event of bilateral leg weakness in the past that resolved quickly. Patient reports is physically active and rides bicycle regularly. He states last night he did stationary bicycle ride and did not have any further symptoms. Took 325mg aspirin this morning. Patient decided to be evaluated today and came to ER. Denies fever/chills, diaphoresis, N/V/D/C, dizziness, syncope, vision loss, diplopia, speech changes, facial drooping, neck pain, CP, SOB, orthopnea, palpitations, cough, sore throat, choking, otalgia, rhinorrhea, abdominal pain, extremity edema, rashes, urinary symptoms. Admission Exam Per Admitting Provider General: no distress, WDWN Head: normocephalic, atraumatic Eyes: PERRL, EOM's intact, conjunctiva non-injected, anicteric ENT: normal inspection external ears, nose, mucous membranes moist Neck: supple, trachea midline, non-tender Lungs: clear, no respiratory distress, no wheezing/rhonchi/rales CV: RRR, no murmur, no JVD, no pretibial edema Abd: normal BS, soft, non-tender Ext: no cyanosis, no calf tenderness Neuro: A&O x 3, normal affect,No nystagmus, facial sensation is intact, face is strong and symmetric, hearing grossly intact, soft palate elevates symmetrically, no dysarthria, shoulder shrug intact, tongue is midline, normal movement, no fasciculations, strength 5/5 throughout BUE and BLE Skin: warm, dry Principal Diagnosis Transient ischemic attack Discharge Data Allergies Allergy/AdvReac Type Severity Reaction Status Date / Time No Known Allergies Allergy Verified 02/02/22 10:24 Consultations 12/05/22 15:14 ED Decision to Admit Stat 12/05/22 18:46 Consult Neurology Routine Procedures Performed Laboratory Results WBC 7.92 K/ul (4.8-10.8) 12/06/22 07:50 RBC 4.66 M/uL (4.70-6.10) L 12/06/22 07:50 Hgb 15.0 g/dl (14.0-18.0) 12/06/22 07:50 Hct 43.3 % (42.0-52.0) 12/06/22 07:50 MCV 92.9 fL (80.0-100.0) 12/06/22 07:50 MCH 32.2 pg (25.0-34.0) 12/06/22 07:50 MCHC 34.6 g/dL (32.0-36.0) 12/06/22 07:50 RDW Std Deviation 40.3 fL (36.4-46.3) 12/06/22 07:50 RDW Coeff of Sweta 11.9 % (11.5-14.5) 12/06/22 07:50 Plt Count 204 K/uL (130-400) 12/06/22 07:50 MPV 11.5 fL (9.4-12.4) 12/06/22 07:50 Immature Gran % (Auto) 0.6 % 12/06/22 07:50 Neut % (Auto) 62.5 % 12/06/22 07:50 Lymph % (Auto) 22.7 % 12/06/22 07:50 Colbert % (Auto) 11.4 % 12/06/22 07:50 Eos % (Auto) 2.3 % 12/06/22 07:50 Baso % (Auto) 0.5 % 12/06/22 07:50 Neut # (Auto) 4.95 K/uL (1.40-6.50) 12/06/22 07:50 Lymph # (Auto) 1.80 K/uL (1.2-3.4) 12/06/22 07:50 Colbert # (Auto) 0.90 K/uL (0.11-0.59) H 12/06/22 07:50 Eos # (Auto) 0.18 K/uL (0-0.50) 12/06/22 07:50 Baso # (Auto) 0.04 K/uL (0-0.2) 12/06/22 07:50 Immature Gran # (Auto) 0.05 K/uL (0.01-0.20) 12/06/22 07:50 PT 11.0 Seconds (9.0-12.0) 12/05/22 12:30 INR 1.0 (0.9-1.1) 12/05/22 12:30 APTT 24.6 Seconds (21.0-31.0) 12/05/22 12:30 PTT Ratio 0.9 12/05/22 12:30 Sodium 139 mmol/L (136-145) 12/06/22 07:50 Potassium 4.1 mmol/L (3.5-5.1) 12/06/22 07:50 Chloride 103 mmol/L (98-107) 12/06/22 07:50 Carbon Dioxide 29 mmol/L (21-32) 12/06/22 07:50 Anion Gap 7 (3-11) 12/06/22 07:50 BUN 28 mg/dl (6-23) H 12/06/22 07:50 Creatinine 1.04 mg/dl (0.6-1.4) 12/06/22 07:50 Est Cr Clr Drug Dosing 75.8 ml/min 12/06/22 07:50 Est GFR ( Amer) 84.5 ml/min 12/06/22 07:50 Est GFR (Non-Af Amer) 72.9 ml/min 12/06/22 07:50 BUN/Creatinine Ratio 26.9 (10-20) H 12/06/22 07:50 Glucose 107 mg/dl (70-99(Fasting)) H 12/06/22 07:50 Calcium 8.8 mg/dl (8.6-10.3) 12/06/22 07:50 Magnesium 2.1 mg/dl (1.7-2.4) 12/05/22 12:30 Total Bilirubin 0.7 mg/dl (0.2-1.0) 12/05/22 12:30 AST 17 U/L (13-39) 12/05/22 12:30 ALT 10 U/L (7-52) 12/05/22 12:30 Alkaline Phosphatase 83 U/L (34-104) 12/05/22 12:30 Troponin I High Sens 6.5 pg/ml (0-20) 12/05/22 12:30 Total Protein 6.6 gm/dl (6.0-8.3) 12/05/22 12:30 Albumin 4.1 gm/dl (3.4-5.0) 12/05/22 12:30 Globulin 2.5 gm/dl (2.5-4.0) 12/05/22 12:30 Albumin/Globulin Ratio 1.6 (0.9-2) 12/05/22 12:30 Triglycerides 143 mg/dl (0-150) 12/06/22 07:50 Cholesterol 145 mg/dl (0-200) 12/06/22 07:50 LDL Cholesterol, Calc 68 mg/dl 12/06/22 07:50 VLDL Cholesterol, Calc 29 mg/dl (0-30) 12/06/22 07:50 HDL Cholesterol 48 mg/dl 12/06/22 07:50 Cholesterol/HDL Ratio 3.0 (0-5) 12/06/22 07:50 TSH 2.992 uIu/ml (0.300-4.500) 12/06/22 08:50 Free T4 1.21 ng/dl (0.61-1.60) 12/06/22 08:50 FSH 7.38 IU/L 12/06/22 08:50 Luteinizing Hormone 2.25 IU/L 12/06/22 08:50 Prolactin 8.51 ng/ml 12/06/22 08:50 Lyme Disease IgG Ab Negative (Negative) 12/05/22 12:30 Lyme Disease IgM Ab Negative (Negative) 12/05/22 12:30 SARS-CoV-2, RNA, NAAT NEGATIVE (NEGATIVE) 12/05/22 12:[address] 12/05/22 12:38 CT angio neck with con, CT angio head w con, CT head/brain wo con CLINICAL HISTORY: neuro deficit, acute stroke suspected TECHNIQUE: Contiguous axial CT images of the head were acquired from the base of the skull to the vertex without intravenous contrast administration. CT angiography of the head and neck was performed following intravenous administration of iodinated contrast. Coronal and sagittal MIPS were obtained from the axial data set and were submitted for review. Automated dose lowering techniques and/or adjustment according to patient size were utilized for this examination. All measurements were calculated based on NASCET criteria. CT DOSE: 1053.02 mGy.cm Comparison: None available at the time of this dictation. FINDINGS: CT head: There is no acute intracranial hemorrhage or evidence of acute yessi torial infarction. No shift of the midline structures, mass effect, or extra- axial abnormalities are shown. Lungs and soft tissues are unremarkable. CTA Neck: A 3 vessel aortic arch is shown. There is no significant atherosclerotic plaque in the aortic arch or the origins of the innominate, left common carotid, and left subclavian arteries. The common carotid, external carotid, cervical segments of the internal carotid arteries, and the cervical segments of the vertebral arteries are patent without hemodynamically significant stenosis. The vertebral arteries are codominant. CTA Head: The anterior and posterior cerebral circulations are patent. No hemodynamically significant stenosis, aneurysm, dissection, or arteriovenous malformation is shown. IMPRESSION: 1. No acute intracranial hemorrhage, evidence of acute territorial infarction, or other acute intracranial disease process. 2. No occlusion, hemodynamically significant stenosis, or dissection in the major cervical arteries. 3. No occlusion, hemodynamically significant stenosis, aneurysm, dissection, or arteriovenous malformation in the major intracranial arteries. Assessment of stenosis of the internal carotid arteries is based on NASCET criteria. ACT 112: Negative or not required by law. Electronically signed by: Vamshi Hay M.D. 12/05/2022 2:36 PM Head CTA 12/05/22 12:38 CT angio neck with con, CT angio head w con, CT head/brain wo con CLINICAL HISTORY: neuro deficit, acute stroke suspected TECHNIQUE: Contiguous axial CT images of the head were acquired from the base of the skull to the vertex without intravenous contrast administration. CT angiography of the head and neck was performed following intravenous administration of iodinated contrast. Coronal and sagittal MIPS were obtained from the axial data set and were submitted for review. Automated dose lowering techniques and/or adjustment according to patient size were utilized for this examination. All measurements were calculated based on NASCET criteria. CT DOSE: 1053.02 mGy.cm Comparison: None available at the time of this dictation. FINDINGS: CT head: There is no acute intracranial hemorrhage or evidence of acute territorial infarction. No shift of the midline structures, mass effect, or extra-axial abnormalities are shown. Lungs and soft tissues are unremarkable. CTA Neck: A 3 vessel aortic arch is shown. There is no significant atherosclerotic plaque in the aortic arch or the origins of the innominate, left common carotid, and left subclavian arteries. The common carotid, external carotid, cervical segments of the internal carotid arteries, and the cervical segments of the vertebral arteries are patent without hemodynamically significant stenosis. The vertebral arteries are codominant. CTA Head: The anterior and posterior cerebral circulations are patent. No hemodynamically significant stenosis, aneurysm, dissection, or arteriovenous malformation is shown. IMPRESSION: 1. No acute intracranial hemorrhage, evidence of acute territorial infarction, or other acute intracranial disease process. 2. No occlusion, hemodynamically significant stenosis, or dissection in the major cervical arteries. 3. No occlusion, hemodynamically significant stenosis, aneurysm, dissection, or arteriovenous malformation in the major intracranial arteries. Assessment of stenosis of the internal carotid arteries is based on NASCET criteria. ACT 112: Negative or not required by law. Electronically signed by: Vamshi Hay M.D. 12/05/2022 2:36 PM Neck CTA 12/05/22 12:38 CT angio neck with con, CT angio head w con, CT head/brain wo con CLINICAL HISTORY: neuro deficit, acute stroke suspected TECHNIQUE: Contiguous axial CT images of the head were acquired from the base of the skull to the vertex without intravenous contrast administration. CT angiography of the head and neck was performed following intravenous ad ministration of iodinated contrast. Coronal and sagittal MIPS were obtained from the axial data set and were submitted for review. Automated dose lowering techniques and/or adjustment according to patient size were utilized for this examination. All measurements were calculated based on NASCET criteria. CT DOSE: 1053.02 mGy.cm Comparison: None available at the time of this dictation. FINDINGS: CT head: There is no acute intracranial hemorrhage or evidence of acute territorial infarction. No shift of the midline structures, mass effect, or extra-axial abnormalities are shown. Lungs and soft tissues are unremarkable. CTA Neck: A 3 vessel aortic arch is shown. There is no significant atherosclerotic plaque in the aortic arch or the origins of the innominate, left common carotid, and left subclavian arteries. The common carotid, external carotid, cervical segments of the internal carotid arteries, and the cervical segments of the vertebral arteries are patent without hemodynamically significant stenosis. The vertebral arteries are codominant. CTA Head: The anterior and posterior cerebral circulations are patent. No hemodynamically significant stenosis, aneurysm, dissection, or arteriovenous malformation is shown. IMPRESSION: 1. No acute intracranial hemorrhage, evidence of acute territorial infarction, or other acute intracranial disease process. 2. No occlusion, hemodynamically significant stenosis, or dissection in the major cervical arteries. 3. No occlusion, hemodynamically significant stenosis, aneurysm, dissection, or arteriovenous malformation in the major intracranial arteries. Assessment of stenosis of the internal carotid arteries is based on NASCET criteria. ACT 112: Negative or not required by law. Electronically signed by: Vamshi Hay M.D. 12/05/2022 2:36 PM Brain MRI 12/05/22 18:46 Exam(s): MRI HEAD Without Contrast EXAM: MR Head Without Intravenous Contrast CLINICAL HISTORY: Reason for exam: TIA symptoms, right sided weakness, high risk TIA. TECHNIQUE: Magnetic resonance images of the head/brain without intravenous contrast in multiple planes. COMPARISON: Comparison is made to prior noncontrast head CT from December 05, 2022. FINDINGS: Brain: Mild nonspecific white matter changes. No mass. No hemorrhage. No acute infarct. The flow voids at the base of the brain are intact. Prominent pituitary gland with convex superior margin measuring 8.7 mm in height. Ventricles: Unremarkable. No ventriculomegaly. Bones/joints: Unremarkable. Sinuses: Unremarkable as visualized. No acute sinusitis. Mastoid air cells: Unremarkable as visualized. No mastoid effusion. Orbits: Bilateral lens replacements. Findings concerning for thyroid ophthalmopathy, which can be seen in the setting of Graves' disease. IMPRESSION: No evidence of acute intracranial pathology. Mild nonspecific white matter changes. Findings concerning for pituitary adenoma. Recommend correlation with hormonal status. If there is continued clinical concern, an MRI of the pituitary gland with and without contrast may be of benefit for further evaluation. Electronically signed by: Lisa Bradley MD 12/06/22 01:41 AM Ordered Studies 12/05/22 12:38 CT angio head w con Stat CT angio neck with con Stat CT head/brain wo con Stat 12/05/22 18:46 MR brain wo con Routine Hospital Course (1) Stroke-like symptoms: Patient is 67-year-old male with PMH HTN, paroxysmal atrial tachycardia, bradycardia, RBBB, gout presented to ER with complaint of right arm and right weakness that occurred yesterday 12/04/22 at 15:00. Right arm weakness resolved in 30 minutes, RLE weakness resolved in 60 minutes. Had visual disturbance. Denies ARZOLA, speech changes, facial drooping, paresthesias. TIA DD: Due to Pituitary adenoma--Less likely H/O Ocular Migraine --MRI Brain: No evidence of acute intracranial pathology. Mild nonspecific white matter changes. Findings concerning for pituitary adenoma. Recommend correlation with hormonal status. If there is continued clinical concern, an MRI of the pituitary gland with and without contrast may be of benefit for further evaluation. --Head/Neck CTA:No acute intracranial hemorrhage, evidence of acute territorial infarction, or other acute intracranial disease process. No occlusion, hemodynamically significant stenosis, or dissection in the major cervical a rteries. No occlusion, hemodynamically significant stenosis, aneurysm, dissection, or arteriovenous malformation in the major intracranial arteries. --LDL:68 --HbA1C:pending -- TSH, free T4 normal. -- FSH 7.38, LH 2.05, prolactin 8.51 -- ACTH, insulin like growth factor I pending Appreciate neurology input PT OT, speech therapy evaluation completed Continue aspirin, Plavix, statin Plan to continue dual antiplatelet for 3 weeks and then aspirin 81 mg daily Advised to follow-up with neurology upon discharge (2) Hypertension: Continue amlodipine Monitor (3) Gout: History Gout Continue allopurinol (4) Glaucoma: Continue latanoprost eye drops DVT Prophylaxis SCDs for now Code Status Full Code Total Time Total Time Spent Total Time Spent (In Minutes): 45 minutes Discharge Plan Discharge Items Patient Disposition: Home - Self-Care Reason For Visit: HIGH RISK TIA, HYPERTENSIVE URGENCY Discharge Diagnosis: Transient Ischemic Attack Activity: Resume your previous activity Non-emergency contact: Primary Care Provider and Neurologist Call non-emergency contact if: you have any medication questions, your symptoms worsen, your pain is concerning for you and you have a fever Follow-up/Referrals: Arie Castro DO [Primary Care Provider] - (Date & Time 12/13/2022 11:20 AM Provider Brandon Holman DO Department [facility] ) Diet: Heart Healthy Addtl Attending Provider Instructions: Follow-up with your primary care physician Dr. Holman on 12/13/2022 11:20 AM Follow-up with your neurologist Dr. Dale in 6-8 weeks --- Continue taking aspirin along with Plavix for 21 days and then aspirin 81 mg daily alone -- Start taking Lipitor 40 mg daily --Your Blood Test:ACTH, insulin like growth factor I pending, HbA1C are pending at the time of discharge. Follow-up with your physician for results. Seek immediate medical attention if your symptoms reoccur or worsen Please take all medications as instructed on discharge list below. Please call if you have any questions or problems. You can reach a [facility] hospitalist on duty at [facility] 24 hours a day by calling [phone] Risk Factors for Stroke: You can reduce your chances of stroke by working with your medical provider to adopt a healthy lifestyle. Some specific ways to lower your chance of stroke are: * If you are a smoker, now is the time to stop smoking cigarettes * If you are diabetic, improve the control of your blood sugars * Avoid excessive amounts of alcohol * Control high blood pressure * Lose weight if you are overweight * Be sure to lead an active lifestyle * Eat a healthy diet low in salt, cholesterol and fat You should know about other risk factors for stroke that you are unable to control. These include: * Age 55 years or older * Male gender * Certain racial groups: , or / * Family History of Stroke, Mini stroke or Heart Attack * Sickle Cell Disease Follow Up: It is important for you to keep your follow up appointments with your medical provider. Who to Call and When: Medical Emergencies: Call 911 immediately if you experience any of the following warning signs and symptoms of Stroke: * Sudden numbness or weakness of the face, arm or leg, especially on one side of the body * Sudden confusion, trouble speaking or understanding * Sudden trouble seeing in one or both eyes * Sudden trouble walking, dizziness, loss of balance or coordination * Sudden severe headache with no cause Do not delay calling 911 if you experience any warning signs or symptoms of a stroke. Delay in seeking medical attention may affect what treatments can be given to you. . Pending Studies at Discharge: No Stand-Alone Forms: My [facility], Smoking Cessation Medications and DC Order Prescriptions: New atorvastatin 40 mg Tablet 40 mg PO HS Qty: 30 0RF clopidogrel 75 mg Tablet 75 mg PO QAM Qty: 21 0RF aspirin 81 mg capsule 81 mg PO DAILY Qty: 30 2RF Continued amlodipine 2.5 mg Tablet 2.5 mg PO QAM allopurinol 300 mg Tablet 150 mg PO QAM multivitamin Capsule 1 cap PO DAILY omega [id number] oil [Fish Oil] 1,000 mg (120 mg-180 mg) Capsule 1 cap PO DAILY Citrucel (sucrose) Powder 1 tbsp PO DAILY latanoprost 0.005 % drops 1 drp ophthalmic (eye) DAILY magnesium 100 mg Tablet 100 mg PO DAILY Discontinued ibuprofen 200 mg Capsule 200 mg PO Q6H PRN (Reason: Pain) Discharge Orders: Discharge Order (Routine); Ordered 12/06/22 Ordered By: Eder Whyte Admission Data Admit Date/Time: 12/05/22 15:26 Attending Provider: Eder Whyte Admit Provider: Viola Blakely Primary Care Provider: Arie Castro Other Providers: Viola Blakely
--- NOTE | 2022-12-06 15:50 | Communication Note ---
Date of Service: December 06, 2022 By CMS guidelines, a determination that the admission or continued stay is not medically necessary has been made by a member of the Utilization Review commi ttee and a physician for this hospital stay. Therefore, a Code 44 will be completed and the inpatient admission will be changed to outpatient. DO ALTA Young Physician Member
--- NOTE | 2022-12-06 15:55 | Electrocardiogram Report ---
Test Reason : Blood Pressure : / mmHG Vent. Rate : 053 BPM Atrial Rate : 053 BPM P-R Int : 150 ms QRS Dur : 140 ms QT Int : 456 ms P-R-T Axes : 031 -21 004 degrees QTc Int : 427 ms Sinus bradycardia Right bundle branch block Abnormal ECG When compared with ECG of 23-AUG-2016 10:56, Questionable change in QRS axis Confirmed by Ken Cain ([id number]) on 12/06/2022 3:55:22 PM Referred By: REFERRED SELF Confirmed By:Kam Cain
[2022-12-13 13:22] LABS: ILGF1 Z-Score Female DNR
== END 2022-12-06 14:45 | disposition home or self-care (01) | DRG 69 ==
LOC: ED 12:05 → INTOOBSV 15:26 → SUATTDRO 15:26 → 2N 15:26